=== PATIENT | female | born 1975 | race Caucasian/White ===

== ENCOUNTER 2016-07-29 14:00 | Emergency (ER) | payer MEDICAID ==
--- NOTE | 2016-07-29 15:01 | EDM.PDOC ---
ED HPI GENERAL MEDICAL PROBLEM - General Chief Complaint: General Stated Complaint: WITHDRAWAL FROM MEDS Time Seen by Provider: 07/29/16 14:45 Source of Information: Reports: Patient History Limitations: Reports: No limitations - History of Present Illness INITIAL COMMENTS - FREE TEXT/NARRATIVE: This 40 yo female patient reports to the ED with withdrawal symptoms. The patient reports she stopped taking Oxycodone yesterday due to previous addiction problems and being on the medication for about 1 year. The patient reports she noticed that her muscles seem to be very tight today and she has been nauseated. The patient reports she does have Zofran which is controlling her vomiting, but would like something to help with the other symptoms. The patient reports she has used Ativan in the past with symptom relief. Duration: Day(s): (2), Constant Location: Reports: generalized Quality: Reports: Ache, Dull Severity: moderate Improves with: Reports: Eating Worsens with: Reports: None Context: Reports: Other Bilateral Feet Pain Score (Numeric/FACES): 4 - Related Data Allergies Allergy/AdvReac Type Severity Reaction Status Date / Time carisoprodol [From Soma] Allergy Cannot Verified 03/25/16 07:22 Remember diclofenac Allergy Rash Verified 03/25/16 07:22 escitalopram [From Lexapro] Allergy Rash Verified 03/25/16 07:22 guaifenesin [From Robitussin] Allergy Hives Verified 03/25/16 07:22 nabumetone [From Relafen] Allergy Cannot Verified 03/25/16 07:22 Remember Penicillins Allergy Hives Verified 03/25/16 07:22 prochlorperazine edisylate Allergy Other Verified 03/25/16 07:22 [From Compazine] prochlorperazine maleate Allergy Other Verified 03/25/16 07:22 [From Compazine] rofecoxib [From Vioxx] Allergy Cannot Verified 03/25/16 07:22 Remember tramadol [From Ultram] Allergy Rash Verified 03/25/16 07:22 vancomycin Allergy Redness Verified 03/25/16 07:22 Home Meds: Home Meds Multivitamin [Multivitamins] 1 each PO DAILY 09/25/13 [History] Albuterol [Ventolin HFA] 2 puff IH Q4H PRN 04/21/14 [History] atorvaSTATin [Lipitor] 20 mg PO BEDTIME 04/07/15 [History] Cyanocobalamin (Vitamin B-12) [Vitamin B-12] 1,000 mcg IM ASDIRECTED 09/09/15 [ History] LORazepam 1 tab PO BID PRN 09/09/15 [History] Polyethylene Glycol 3350 [MiraLAX] 17 gm PO DAILY 10/08/15 [History] ALPRAZolam [Xanax] 1 tab PO ASDIRECTED PRN 03/22/16 [History] B12/Levomefolate Calcium/B-6 [Foltx Tablet] 2 mg PO DAILY 03/22/16 [History] Levothyroxine Sodium [Synthroid] 1 tab PO DAILY 03/22/16 [History] Levothyroxine Sodium [Synthroid] 1 tab PO DAILY 03/22/16 [History] Levothyroxine [Synthroid] 1 tab PO DAILY 03/22/16 [History] Ondansetron HCl [Zofran] 1 tab PO Q8H 03/22/16 [History] PARoxetine HCl [Paxil] 1 tab PO BEDTIME 03/22/16 [History] oxyCODONE 1 tab PO Q8H 03/22/16 [History] Past Medical History HEENT History: Reports: Sinusitis, Other (see below) Other HEENT History: TMJ pain Cardiovascular History: Reports: High cholesterol, Other (see below) Other Cardiovascular History: Mitral valve prolapse Respiratory History: Reports: Asthma Gastrointestinal History: Reports: None Genitourinary History: Reports: None 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: 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, Musculoskeletal History: Reports: Osteoporosis Neurological History: Reports: Other (see below) Other Neuro History: insomnia Psychiatric History: Reports: Anxiety, Other (see below) Other Psychiatric History: Hx substance abuse Endocrine/Metabolic History: Reports: Hypothyroidism Hematologic History: Reports: B12 deficiency, Other (see below) Other Hematologic History: hashimotos Immunologic History: Reports: None Oncologic (Cancer) History: Reports: None Dermatologic History: Reports: Cellulitis, Eczema - Infectious Disease History Infectious Disease History: Reports: Chicken pox - Past Surgical History Head Surgeries/Procedures: Reports: None HEENT Surgical History: Reports: Adenoidectomy, Naso-sinus surgery, Tonsillectomy, Other (see below) Other HEENT Surgeries/Procedures: septoplasty, bilateral turbinoplasty GI Surgical History: Reports: Appendectomy, Cholecystectomy, Colonoscopy, EGD, Hernia repair/other, Lysis of adhesions Other GI Surgeries/Procedures: umbilical hernia as child Female Surgical History: Reports: Hysterectomy, Salpingo-oophorectomy Endocrine Surgical History: Reports: Thyroidectomy Musculoskeletal Surgical History: Reports: Other (see below) Other Musculoskeletal Surgeries/Procedures:: "shortening" of left ulna bone, L) wrist arthroscopy, L) wrsit ganglion cyst removal Social & Family History - Family History Family Medical History: Noncontributory HEENT: Reports: None Cardiac: Reports: Arrhythmia Respiratory: Reports: None GI: Reports: Cirrhosis : Reports: None OBGYN: Reports: None Musculoskeletal: Reports: None Neurological: Reports: None Psychiatric: Reports: Autism Endocrine/Metabolic: Reports: Diabetes, type II, Other (see below) Other Endocrine/Metabolic Family History: some kind of thyroid disease in aunt Hematologic: Reports: B12 deficiency Immunologic: Reports: None Dermatologic: Reports: None Oncologic: Reports: Breast, Colon - Tobacco Use Smoking Status *Q: Current Every Day Smoker Years of Tobacco use: 20 Packs/Tins Daily: 0.7 Used Tobacco, but Quit: Yes Month Tobacco Last Used: 1 Second Hand Smoke Exposure: No - Caffeine Use Caffeine Use: Reports: Soda Other Caffeine Use: 1-2 cans - Alcohol Use Days Per Week of Alcohol Use: 0 - Recreational Drug Use Recreational Drug Use: No ED ROS GENERAL - Review of Systems Review Of Systems: ROS reveals no pertinent complaints other than HPI. ED EXAM, GENERAL - Physical Exam Exam: See Below Exam Limited By: No limitations General Appearance: alert, WD/WN, moderate distress Eye Exam: bilateral eye: EOMI, normal inspection, PERRL Ears: normal external exam, normal canal, hearing grossly normal, normal TMs Nose: normal inspection, normal mucosa, no blood Throat/Mouth: Normal inspection, Normal lips, Normal teeth, Normal gums, Normal oropharynx, Normal voice, No airway compromise Head: atraumatic, normocephalic Neck: normal inspection, supple, non-tender, full range of motion Respiratory/Chest: no respiratory distress, lungs clear, normal breath sounds, no accessory muscle use, chest non-tender Cardiovascular: normal peripheral pulses, regular rate, rhythm, no edema, no gallop, no JVD, no murmur, no rub GI/Abdominal: normal bowel sounds, soft, non tender, no organomegaly, no distention, no abnormal bruit, no mass (Female) Exam: Deferred Rectal (Female) Exam: Deferred Back Exam: normal inspection, full range of motion, NT Extremities: normal inspection, normal range of motion, non-tender, normal capillary refill, no pedal edema Neurological: alert, oriented, CN II-XII intact, normal cognition, normal gait, normal reflexes, no motor/sensory deficits Psychiatric: anxious Skin Exam: Warm, Dry, Intact, Normal color, No rash Lymphatic: no adenopathy Course - Vital Signs Last Recorded V/S: Last Vital Signs Temp 36.0 C 07/29/16 14:15 Pulse 94 07/29/16 14:15 Resp 18 07/29/16 14:15 BP 118/87 07/29/16 14:15 Pulse Ox 100 07/29/16 14:15 Departure - Departure Time of Disposition: 14:57 Disposition: Home, Self-Care 01 Condition: fair Clinical Impression: Opioid withdrawal Instructions: Opioid Withdrawal Forms: ED Department Discharge Care Plan Goals: The patient was advised of the examination results during the visit. The patient was given a script for Clonidine (0.1 mg) #30 to take 1 by mouth 3 times per day. The patient should follow-up with Dr. Anderson for continued evaluation and further management of withdrawal symptoms. If the patient has any additional symptoms or concerns, the patient should either visit her primary care facility or return to the emergency department.
== END 2016-07-29 15:46 | disposition home or self-care (01) ==
LOC: DL.ED 14:00
CPT/HCPCS: 99284

== ENCOUNTER 2017-02-04 02:41 | Emergency (ER) | payer MEDICAID ==
[2017-02-04] MEDS ORDERED: cloNIDine 0.1 MG Tab PO ONE (03:19)
[2017-02-04 03:25] VITALS: BP 111/83
--- NOTE | 2017-02-04 03:29 | EDM.PDOC ---
ED HPI GENERAL MEDICAL PROBLEM - General Chief Complaint: Behavioral/Psych Stated Complaint: WITHDRAWL FROM MEDICATION Time Seen by Provider: 02/04/17 03:20 Source of Information: Reports: Patient History Limitations: Reports: No Limitations - History of Present Illness INITIAL COMMENTS - FREE TEXT/NARRATIVE: This 41 yo female patient reports to the ED due to withdrawal symptoms. The patient reports she stopped taking Oxycodone about 48 hours ago. The patient has been taking pain medications for plantar fasciitis and bone spurs. The patient reports she is supposed to be scheduling surgery today for her foot. The patient reports similar symptoms in the past that was helped with Clonidine. Onset: Gradual Duration: Day(s):, Constant, Getting Worse Location: Reports: Generalized Severity: Moderate Improves with: Reports: None Worsens with: Reports: None Associated Symptoms: Reports: No Other Symptoms Bilateral Feet Pain Score (Numeric/FACES): 4 - Related Data Allergies Allergy/AdvReac Type Severity Reaction Status Date / Time carisoprodol [From Soma] Allergy Cannot Verified 02/04/17 02:47 Remember diclofenac Allergy Rash Verified 02/04/17 02:47 escitalopram [From Lexapro] Allergy Rash Verified 02/04/17 02:47 guaifenesin [From Robitussin] Allergy Hives Verified 02/04/17 02:47 nabumetone [From Relafen] Allergy Cannot Verified 02/04/17 02:47 Remember Penicillins Allergy Hives Verified 02/04/17 02:47 prochlorperazine edisylate Allergy Other Verified 02/04/17 02:47 [From Compazine] prochlorperazine maleate Allergy Other Verified 02/04/17 02:47 [From Compazine] rofecoxib [From Vioxx] Allergy Cannot Verified 02/04/17 02:47 Remember tramadol [From Ultram] Allergy Rash Verified 02/04/17 02:47 vancomycin Allergy Redness Verified 02/04/17 02:47 Home Meds: Home Meds Multivitamin [Multivitamins] 1 each PO DAILY 09/25/13 [History] Albuterol [Ventolin HFA] 2 puff IH Q4H PRN 04/21/14 [History] atorvaSTATin [Lipitor] 20 mg PO BEDTIME 04/07/15 [History] Cyanocobalamin (Vitamin B-12) [Vitamin B-12] 1,000 mcg IM ASDIRECTED 09/09/15 [ History] LORazepam 1 tab PO BID PRN 09/09/15 [History] Levothyroxine Sodium [Synthroid] 1 tab PO DAILY 03/22/16 [History] Levothyroxine Sodium [Synthroid] 2 tab PO DAILY 03/22/16 [History] Levothyroxine [Synthroid] 1 tab PO DAILY 03/22/16 [History] Ondansetron HCl [Zofran] 1 tab PO Q8H 03/22/16 [History] oxyCODONE 1 tab PO Q8H 03/22/16 [History] Past Medical History HEENT History: Reports: Sinusitis Other HEENT History: TMJ pain Cardiovascular History: Reports: High Cholesterol Other Cardiovascular History: Mitral valve prolapse Respiratory History: Reports: Asthma Gastrointestinal History: Reports: None Genitourinary History: Reports: None [employer] INS[employer]OR History: Reports: Musculoskeletal History: Reports: Osteoporosis Other Musculoskeletal History: plantar fasceitis Neurological History: Reports: Other (See Below) Other Neuro History: insomnia Psychiatric History: Reports: Addiction, Anxiety Other Psychiatric History: Hx substance abuse Endocrine/Metabolic History: Reports: Hypothyroidism Hematologic History: Reports: B12 Deficiency, Other (See Below) Other Hematologic History: hashimotos Immunologic History: Reports: None Oncologic (Cancer) History: Reports: None Dermatologic History: Reports: Cellulitis, Eczema - Infectious Disease History Infectious Disease History: Reports: Chicken Pox - Past Surgical History Head Surgeries/Procedures: Reports: None HEENT Surgical History: Reports: Adenoidectomy, Naso-Sinus Surgery, Tonsillectomy GI Surgical History: Reports: Appendectomy, Cholecystectomy, Colonoscopy, EGD, Hernia Repair/Other, Lysis of Adhesions Female Surgical History: Reports: Hysterectomy, Salpingo-Oophorectomy Endocrine Surgical History: Reports: Thyroidectomy Social & Family History - Family History Family Medical History: Noncontributory HEENT: Reports: None Cardiac: Reports: Arrhythmia Respiratory: Reports: None GI: Reports: Cirrhosis : Reports: None OBGYN: Reports: None Musculoskeletal: Reports: None Neurological: Reports: None Psychiatric: Reports: Autism Endocrine/Metabolic: Reports: Diabetes, type II, Other (See Below) Other Endocrine/Metabolic Family History: some kind of thyroid disease in aunt Hematologic: Reports: B12 Deficiency Immunologic: Reports: None Dermatologic: Reports: None Oncologic: Reports: Breast, Colon - Tobacco Use Smoking Status *Q: Current Every Day Smoker Years of Tobacco use: 23 Packs/Tins Daily: 1 Used Tobacco, but Quit: Yes Month Tobacco Last Used: 1 Second Hand Smoke Exposure: Yes - Caffeine Use Caffeine Use: Reports: Soda Other Caffeine Use: 1-2 cans - Alcohol Use Days Per Week of Alcohol Use: 0 - Recreational Drug Use Recreational Drug Use: No ED ROS GENERAL - Review of Systems Review Of Systems: ROS reveals no pertinent complaints other than HPI. ED EXAM, GENERAL - Physical Exam Exam: See Below Exam Limited By: No Limitations General Appearance: Alert, WD/WN, No Apparent Distress Eye Exam: Bilateral Eye: EOMI, Normal Inspection, PERRL Ears: Normal External Exam, Normal Canal, Hearing Grossly Normal, Normal TMs Nose: Normal Inspection, Normal Mucosa, No Blood Throat/Mouth: Normal Inspection, Normal Lips, Normal Teeth, Normal Gums, Normal Oropharynx, Normal Voice, No Airway Compromise Head: Atraumatic, Normocephalic Neck: Normal Inspection, Supple, Non-Tender, Full Range of Motion Respiratory/Chest: No Respiratory Distress, Lungs Clear, Normal Breath Sounds, No Accessory Muscle Use, Chest Non-Tender Cardiovascular: Normal Peripheral Pulses, Regular Rate, Rhythm, No Edema, No Gallop, No JVD, No Murmur, No Rub GI/Abdominal: Normal Bowel Sounds, Soft, Non-Tender, No Organomegaly, No Distention, No Abnormal Bruit, No Mass (Female) Exam: Deferred Rectal (Female) Exam: Deferred Back Exam: Normal Inspection, Full Range of Motion, NT Extremities: Normal Inspection, Normal Range of Motion, No Pedal Edema, Normal Capillary Refill, Other (bilateral foot pain (worse in right)) Neurological: Alert, Oriented, CN II-XII Intact, Normal Cognition, Normal Gait, Normal Reflexes, No Motor/Sensory Deficits Psychiatric: Anxious, Flat Affect Skin Exam: Warm, Dry, Intact, Normal Color, No Rash Lymphatic: No Adenopathy Course - Vital Signs Last Recorded V/S: Last Vital Signs Temp 36.1 C 02/04/17 02:43 Pulse 128 H 02/04/17 02:43 Resp 18 02/04/17 02:43 BP 111/83 02/04/17 03:23 Pulse Ox 95 09/22/17 02:43 - Orders/Labs/Meds Labs: Laboratory Tests 02/04/17 Range/Units 02:55 Urine Opiates Screen Negative (NEGATIVE) Ur Oxycodone Screen Positive H (NEGATIVE) Urine Methadone Screen Negative (NEGATIVE) Ur Barbiturates Screen Negative (NEGATIVE) U Tricyclic Antidepress Negative (NEGATIVE) Ur Phencyclidine Scrn Negative (NEGATIVE) Ur Amphetamine Screen Negative (NEGATIVE) U Methamphetamines Scrn Negative (NEGATIVE) Urine MDMA Screen Negative (NEGATIVE) U Benzodiazepines Scrn Positive H (NEGATIVE) Urine Cocaine Screen Negative (NEGATIVE) U Marijuana (THC) Screen Negative (NEGATIVE) Meds: Medications Discontinued Medications Generic Name Dose Route Start Last Admin Trade Name Freq PRN Reason Stop Dose Admin Clonidine HCl 0.1 mg 02/04/17 03:19 02/04/17 03:23 Catapres PO 02/04/17 03:20 0.1 mg ONETIME ONE Administration Departure - Departure Time of Disposition: 03:26 Disposition: Home, Self-Care 01 Condition: Fair Clinical Impression: Opioid withdrawal - Discharge Information Instructions: Opioid Withdrawal Forms: ED Department Discharge Care Plan Goals: The patient was advised of the examination and lab results during the visit. The patient was given an oral dose of Clonidine (0.1 mg). The patient was discharged with a script for Clonidine (0.1 mg) #10 to take 1 by mouth 2 times per day. The patient was encouraged to follow-up with her primary care facility for continued evaluation and further management. If the patient has any additional symptoms or concerns, the patient should visit her primary care facility or return to the emergency department.
== END 2017-02-04 03:33 | disposition home or self-care (01) ==
LOC: DL.ED 02:41
DX: F11.23 Opioid dependence with withdrawal (principal); E78.00 Pure hypercholesterolemia, unspecified; E03.9 Hypothyroidism, unspecified; J45.909 Unspecified asthma, uncomplicated; F17.210 Nicotine dependence, cigarettes, uncomplicated; Z88.8 Allergy status to other drugs, medicaments and biological substances; Z88.0 Allergy status to penicillin; Z79.899 Other long term (current) drug therapy
CPT/HCPCS: 80305; 99284; A9270

== ENCOUNTER 2017-02-24 09:02 | Day surgery (SDC) | payer MEDICAID ==
[~2017-02-24 09:02] MED LIST: Lactated Ringers 1,000 ML IV SCH; Sodium Chloride 0.9% 10 ML Syringe FLUSH PRN
[2017-02-24] MEDS ORDERED: Ketorolac 30 MG/ML SDV IVPUSH ONE (09:03)
[2017-02-24] MEDS ORDERED: fentaNYL 100 MCG/2 ML SDV IV ONE (09:03)
[2017-02-24] MEDS ORDERED: Propofol 200 MG/20 ML SDV IV ONE (09:03)
[2017-02-24] MEDS ORDERED: Lidocaine 1% 30 ML SDV INJECT ONE ×4 (09:03→13:58)
[2017-02-24] MEDS ORDERED: Betamethasone Acetate/Betamethasone Sod Phosphate 30 MG/5 ML MDV ONE ×4 (09:03→13:59)
[2017-02-24] MEDS ORDERED: Ondansetron 4 MG/2 ML SDV IV ONE (09:03)
[2017-02-24] MEDS ORDERED: Dexamethasone 4 MG/ML SDV IV ONE (09:03)
[2017-02-24] MEDS ORDERED: Midazolam 1 MG/ML 2 ML SDV IV ONE (09:03)
[2017-02-24] MEDS ORDERED: Bupivacaine 0.5% 10 ML SDV INJECT ONE ×4 (09:03→13:58)
[2017-02-24] MEDS ORDERED: Bupivacaine 0.5% 10 ML SDV ONE (10:36)
[2017-02-24] MEDS ORDERED: Lidocaine 1% 30 ML SDV ONE (10:36)
[2017-02-24] MEDS ORDERED: fentaNYL 100 MCG/2 ML SDV ONE (12:48)
[2017-02-24] MEDS ORDERED: Ketorolac 30 MG/ML SDV ONE (12:48)
[2017-02-24] MEDS ORDERED: Midazolam 1 MG/ML 2 ML SDV ONE (12:48)
[2017-02-24] MEDS ORDERED: Dexamethasone 4 MG/ML SDV ONE (12:48)
[2017-02-24] MEDS ORDERED: Ondansetron 4 MG/2 ML SDV ONE (12:48)
[2017-02-24] MEDS ORDERED: Acetaminophen/oxyCODONE 325-5 MG Tab PO PRN (13:55)
--- NOTE | 2017-02-24 14:03 | PCM.OPNOTE ---
- General Post-Op/Procedure Note Date of Surgery/Procedure: 02/24/17 Operative Procedure(s): right foot open plantar fasciectomy Pre Op Diagnosis: right foot plantar fasciitis Post-Op Diagnosis: gio Anesthesia Technique: Local, MAC Primary Surgeon: Ericka Tariq Anesthesia Provider: Cabrera Carcamo EBL in mLs: 5 Complications: none Condition: Good Free Text/Narrative:: Pt tolerated procedure well and was transported to recovery with vascular status intact to right foot. Well padded L&U splint with ankle in 0 applied.
[2017-02-24 15:06] VITALS: BP 119/79
--- NOTE | 2017-02-24 21:38 | OR ---
DATE: 02/24/2017 PREOPERATIVE DIAGNOSIS: Right foot plantar fasciitis. POSTOPERATIVE DIAGNOSIS: Right foot plantar fasciitis. PROCEDURE PERFORMED: Right foot open plantar fasciectomy. ANESTHESIA: Local MAC with preoperative local block of 10 mL; 1:1 mixture of 1% lidocaine plain and 0.5% Marcaine plain. TOURNIQUET TIME: 24 minutes; pneumatic ankle tourniquet. ESTIMATED BLOOD LOSS: Minimal. SPECIMEN: None. COMPLICATIONS: None. INDICATIONS: Jennifer is a 41-year-old female who presents with right foot heel pain. I have been seeing her for few years now for this heel pain. We have tried multiple different treatment options for this including custom orthotics, injections, stretchings, and activity modifications with no relief. She does stand on her feet all day at work on hard floors, and this increases the pain. Also, increased pain with first steps after rest. X-rays of the right foot reveal no signs of fracture present, no spurring present. The patient voiced good understanding of the proposed procedure and possible complications and elects to have surgery at this time. DESCRIPTION OF PROCEDURE: The patient was taken to the operating room lying in the supine position. After adequate anesthesia induction as described above, the right foot was prepped and draped in the usual sterile fashion. A pneumatic ankle tourniquet was inflated to 225 mmHg. Attention was then directed to the plantar right foot at the area just distal to the calcaneal fat pad. At the instep, a 4 cm transverse incision was made in this area to gain access to the plantar fascia band. Sharp and blunt dissection was performed down to the level of the plantar fascia band. An approximately 1 cm square section was removed from the plantar fascia band at the medial and central portion and was excised from the foot. The area was inspected, and no further tightness of the plantar fascia band was noted in this area. The area was then irrigated with copious amounts of sterile saline. Deep closure was completed with 2-0 Vicryl, and skin closure was completed with 4-0 nylon. I did inject betamethasone into this area after the closure. The area was then dressed with Xeroform to the incision site, fluffs, Webril, and a well-padded L and U splint with the ankle in 0 degrees. The patient tolerated the procedure and anesthesia well and was transported to the recovery with vital signs stable. Vascular status intact to the right foot as noted by immediate hyperemia to all digits upon deflation of the ankle tourniquet. The patient was then discharged home when she met hospital discharge requirements. [facility] /[id number]
--- NOTE | 2017-02-28 07:42 | EKG ---
02/24/2017- DARBY SANTANA - EKG done on a 41-year-old female, showing sinus rhythm with normal axis, normal intervals, no acute ST-T wave changes. [facility] /[id number]
== END 2017-02-24 14:55 | disposition home or self-care (01) ==
LOC: DL.SDS 09:02
PROVIDERS: ATTEND Podiatrist
DX: M72.2 Plantar fascial fibromatosis (principal); E53.8 Deficiency of other specified B group vitamins; Z90.710 Acquired absence of both cervix and uterus; Z90.49 Acquired absence of other specified parts of digestive tract; Z98.890 Other specified postprocedural states; Z98.51 Tubal ligation status; Z79.899 Other long term (current) drug therapy; Z88.0 Allergy status to penicillin; Z88.1 Allergy status to other antibiotic agents; Z88.8 Allergy status to other drugs, medicaments and biological substances; F17.210 Nicotine dependence, cigarettes, uncomplicated
CPT/HCPCS: 28060; 93005; J0702; J1100; J1885; J2250; J2405; J2704; J3010; J7120

== ENCOUNTER 2017-07-07 07:05 | Day surgery (SDC) | payer MEDICAID ==
[~2017-07-07 07:05] MED LIST changes: +Clindamycin Phosphate 600 MG in Sodium Chloride 0.9% 100 ML IV ONE
[2017-07-07] MEDS ORDERED: Bupivacaine 0.5% 10 ML SDV ONE (07:29)
[2017-07-07] MEDS ORDERED: Lidocaine 1% 30 ML SDV ONE (07:29)
[2017-07-07 07:36] VITALS: BP 119/90
[2017-07-07 08:03] LABS: CHLORIDE,CL 102 mmol/L (101-111); SODIUM,NA 134 mmol/L (135-145)
== END 2017-07-07 08:30 | disposition home or self-care (01) ==
LOC: DL.SDS 07:05
PROVIDERS: ATTEND Podiatrist
DX: M79.671 Pain in right foot (principal); M79.672 Pain in left foot; E03.9 Hypothyroidism, unspecified; E53.8 Deficiency of other specified B group vitamins; Z53.8 Procedure and treatment not carried out for other reasons; Z88.0 Allergy status to penicillin; Z88.8 Allergy status to other drugs, medicaments and biological substances; F17.210 Nicotine dependence, cigarettes, uncomplicated; Z79.899 Other long term (current) drug therapy; Z90.49 Acquired absence of other specified parts of digestive tract; Z98.890 Other specified postprocedural states
CPT/HCPCS: 36415; 80048; 84443

== ENCOUNTER 2017-07-14 05:55 | Day surgery (SDC) | payer MEDICAID ==
[~2017-07-14 05:55] MED LIST changes: -Clindamycin Phosphate 600 MG in Sodium Chloride 0.9% 100 ML IV ONE; -Lactated Ringers 1,000 ML IV SCH
[2017-07-14] MEDS ORDERED: Propofol 200 MG/20 ML SDV IV ONE (05:56)
[2017-07-14] MEDS ORDERED: Midazolam 1 MG/ML 2 ML SDV IV ONE (05:56)
[2017-07-14] MEDS ORDERED: fentaNYL 100 MCG/2 ML SDV IV ONE (05:56)
[2017-07-14] MEDS ORDERED: Ondansetron 4 MG/2 ML SDV IV ONE (05:56)
[2017-07-14] MEDS ORDERED: Ketorolac 30 MG/ML SDV IVPUSH ONE (05:56)
[2017-07-14] MEDS ORDERED: Dexamethasone 4 MG/ML SDV IV ONE (05:56)
[2017-07-14] MEDS ORDERED: Lidocaine 1% 30 ML SDV ONE (06:32)
[2017-07-14] MEDS ORDERED: Bupivacaine 0.5% 10 ML SDV ONE (06:32)
[2017-07-14] MEDS: Lactated Ringers 1,000 ML IV SCH (06:35)
[2017-07-14] MEDS ORDERED: Midazolam 1 MG/ML 2 ML SDV ONE (07:07)
[2017-07-14] MEDS ORDERED: fentaNYL 100 MCG/2 ML SDV ONE (07:08)
[2017-07-14] MEDS ORDERED: Propofol 200 MG/20 ML SDV ONE ×2 (07:08→08:24)
[2017-07-14] MEDS ORDERED: Clindamycin Phosphate 600 MG/4 ML SDV ONE ×2 (07:14→07:22)
[2017-07-14] MEDS ORDERED: Sodium Chloride 0.9% 0 ML ONE (07:14)
[2017-07-14] MEDS: Clindamycin Phosphate 600 MG in Sodium Chloride 0.9% 100 ML IV ONE (07:25)
[2017-07-14] MEDS: Bupivacaine 0.5% 10 ML SDV INJECT ONE ×2 (07:38→08:04)
[2017-07-14] MEDS: Lidocaine 1% 30 ML SDV INJECT ONE ×2 (07:38→08:04)
[2017-07-14 09:46] VITALS: BP 125/88
--- NOTE | 2017-07-14 10:02 | PCM.OPNOTE ---
- General Post-Op/Procedure Note Date of Surgery/Procedure: 07/14/17 Operative Procedure(s): left foot open plantar fascia release/scar tissue excision Pre Op Diagnosis: left foot plantar fasciitis, painful scar tissue Post-Op Diagnosis: gio Anesthesia Technique: Local, MAC Primary Surgeon: Ericka Tariq Anesthesia Provider: Cabrera Carcamo EBL in mLs: 10 Complications: none Condition: Good Free Text/Narrative:: Intake & Output 07/13/17 07/14/17 07/14/17 22:59 06:59 14:59 Intake Total 250 Balance 250 Pt tolerated procedure well and was transported to recovery with vascular status intact to left foot. TT 19 mins. Placed in well padded compression dressing with cam boot in 90 degrees.
--- NOTE | 2017-07-15 08:27 | OR ---
DATE: 07/14/2017 PREOPERATIVE DIAGNOSIS: Recurrent left foot plantar fasciitis with scar tissue. POSTOPERATIVE DIAGNOSIS: Recurrent left foot plantar fasciitis with scar tissue. PROCEDURE PERFORMED: Left foot open plantar fasciectomy with scar tissue excision. ANESTHESIA: Local MAC with preoperative local block of 10 mL 1:1 mixture of 1% lidocaine plain and 0.5% Marcaine plain. TOURNIQUET TIME: 19 minutes. Pneumatic ankle tourniquets. ESTIMATED BLOOD LOSS: Minimal. SPECIMEN: None. COMPLICATIONS: None. INDICATIONS: Jennifer is a 41-year-old female, who presents with left heel pain. We had done a surgery in the past for her chronic plantar fasciitis. She states that it was better for quite a while after the surgery and then started becoming painful again. She has been dealing with some scar tissue to that area ever since the surgery and has been trying some scar tissue massage as well as stretching, icing, custom inserts, and also we did a cortisone injection, which only helped for a few days. She would like to get back to work as she has not been working in the past several months and is planning on going back in a couple of months. She stands on her feet all day for work and would like to get this taken care of before she returns to work. Her right foot was recently done surgically and she has not been having any problems with that right foot, which she states is now healed. The patient voiced good understanding of the proposed procedure and possible complications and elects to have surgery at this time. DESCRIPTION OF THE PROCEDURE: The patient was taken to the operating room lying in the supine position. After adequate anesthesia induction as described above, the left foot was prepped and draped in the usual sterile fashion. A pneumatic ankle tourniquet was inflated to 225 mmHg. Attention was then directed to the left foot at the area just distal to the calcaneus fat pad where an approximately 4 cm linear incision was made to gain access to the plantar aspect of the foot and the central band of the plantar fascia. Sharp and blunt dissection were performed down to the level of the plantar fascia area, there was noted to be quite a thick amount of fibrous type tissue in the area and this was all excised with a #15 blade. The plantar fascia was scarred in as well and this was also excised, an approximately 1.5 cm section of this plantar fascia band was resected from the foot. Inspection of the site revealed no further tightness of the plantar fascia or scar tissue. All scar tissue seemed to be removed. The area was then irrigated with copious amounts of sterile saline. Deep closure was completed with 3-0 Vicryl, and skin closure was completed with 4-0 nylon. The area was dressed with Xeroform to the incision site, fluffs, Webril, and an Conor wrap. She was placed into a Cam boot at this time due to her having some issues with the splint last time. She will make sure she keeps this on at all time and can take it off to stretch her foot a few times a day. She tolerated the procedure and anesthesia well and left the operating room for recovery with vital signs stable and in good condition with vascular status intact to the left foot as noted by immediate hyperemia upon deflation of the tourniquet. Total tourniquet time of 19 minutes. She was discharged home when she met hospital discharge requirements. [facility] /[id number]
== END 2017-07-14 09:05 | disposition home or self-care (01) ==
LOC: DL.SDS 05:55
PROVIDERS: ATTEND Podiatrist
DX: M72.2 Plantar fascial fibromatosis (principal); E03.9 Hypothyroidism, unspecified; F41.9 Anxiety disorder, unspecified; F17.210 Nicotine dependence, cigarettes, uncomplicated; Z79.899 Other long term (current) drug therapy; Z88.0 Allergy status to penicillin; Z88.1 Allergy status to other antibiotic agents; Z88.8 Allergy status to other drugs, medicaments and biological substances
CPT/HCPCS: 28060; J1100; J1885; J2250; J2405; J2704; J3010; J7050; J7120; S0077

== ENCOUNTER 2017-08-08 | Emergency (ER) | payer MEDICAID ==
[2017-08-08 00:16] VITALS: BP 133/87
[2017-08-08] MEDS ORDERED: LORazepam 2 MG/ML Syringe IM ONE (00:20)
--- NOTE | 2017-08-08 00:24 | EDM.PDOCBH ---
ED HPI GENERAL MEDICAL PROBLEM - General Chief Complaint: Behavioral/Psych Stated Complaint: ANXIETY ATTACK [id number] Time Seen by Provider: 08/08/17 00:20 Source of Information: Reports: Patient History Limitations: Reports: No Limitations - History of Present Illness INITIAL COMMENTS - FREE TEXT/NARRATIVE: c/o exac anxiety since foot surgery few days ago, vistaril not helping. feeling agitated and can't sleep. - Related Data Allergies Allergy/AdvReac Type Severity Reaction Status Date / Time carisoprodol [From Soma] Allergy Cannot Verified 07/14/17 06:21 Remember diclofenac Allergy Rash Verified 07/14/17 06:21 escitalopram [From Lexapro] Allergy Rash Verified 07/14/17 06:21 guaifenesin [From Robitussin] Allergy Hives Verified 07/14/17 06:21 nabumetone [From Relafen] Allergy Cannot Verified 07/14/17 06:21 Remember Penicillins Allergy Hives Verified 07/14/17 06:21 prochlorperazine edisylate Allergy Other Verified 07/14/17 06:21 [From Compazine] prochlorperazine maleate Allergy Other Verified 07/14/17 06:21 [From Compazine] rofecoxib [From Vioxx] Allergy Cannot Verified 07/14/17 06:21 Remember tramadol [From Ultram] Allergy Rash Verified 07/14/17 06:21 vancomycin Allergy Redness Verified 07/14/17 06:21 Home Meds: Home Meds Multivitamin [Multivitamins] 1 each PO DAILY 09/25/13 [History] Albuterol [Ventolin HFA] 2 puff IH Q4H PRN 04/21/14 [History] atorvaSTATin [Lipitor] 20 mg PO BEDTIME 04/07/15 [History] Cyanocobalamin (Vitamin B-12) [Vitamin B-12] 1,000 mcg IM ASDIRECTED 09/09/15 [ History] Ondansetron HCl [Zofran] 1 tab PO Q8H PRN 03/22/16 [History] Acyclovir [IJP: Acyclovir] 500 mg PO DAILY 02/23/17 [History] Levothyroxine Sodium [Synthroid] 250 mcg PO DAILY 02/23/17 [History] Naproxen [Naproxen] 500 mg PO BID PRN 02/23/17 [History] Venlafaxine HCl [Venlafaxine ER] 1 cap PO DAILY 02/23/17 [History] Gabapentin [Neurontin] 300 mg PO TID 07/05/17 [History] Hydrocodone/Acetaminophen [Hydrocodon-Acetaminophen 5-325] 5 - 325 mg PO Q8H [History] LORazepam 1 mg PO Q8HR 07/05/17 [History] Pantoprazole Sodium [Protonix] 40 mg PO ASDIRECTED PRN 07/05/17 [History] Potassium Chloride [Klor-Con 10] 10 meq PO ATDISCHARGE PRN 07/05/17 [History] Past Medical History HEENT History: Reports: Sinusitis Other HEENT History: TMJ pain Cardiovascular History: Reports: High Cholesterol, Other (See Below) Other Cardiovascular History: Mitral valve prolapse Respiratory History: Reports: Asthma, Bronchitis, Recurrent Gastrointestinal History: Reports: None, Other (See Below) Other Gastrointestinal History: IDIOPATHIC COLITIS Genitourinary History: Reports: None STEREOPTICIAN History: Reports: , Spontaneous Musculoskeletal History: Reports: Osteoporosis Other Musculoskeletal History: plantar fasceitis Neurological History: Reports: Other (See Below) Other Neuro History: INSOMNIA Psychiatric History: Reports: Addiction, Anxiety Other Psychiatric History: Hx substance abuse Endocrine/Metabolic History: Reports: Hypothyroidism, Other (See Below) Other Endocrine/Metabolic History: HX OF CECILIA'S THYROIDITIS Hematologic History: Reports: B12 Deficiency, Other (See Below) Other Hematologic History: hashimotos Immunologic History: Reports: None Oncologic (Cancer) History: Reports: None Dermatologic History: Reports: Cellulitis, Eczema - Infectious Disease History Infectious Disease History: Reports: Chicken Pox - Past Surgical History Head Surgeries/Procedures: Reports: None HEENT Surgical History: Reports: Adenoidectomy, Naso-Sinus Surgery, Tonsillectomy, Other (See Below) Other HEENT Surgeries/Procedures: septoplasty, bilateral turbinoplasty Cardiovascular Surgical History: Reports: None Respiratory Surgical History: Reports: None GI Surgical History: Reports: Appendectomy, Cholecystectomy, Colonoscopy, EGD, Esophageal Dilatation, Hernia Repair/Other, Lysis of Adhesions, Other (See Below ) Other GI Surgeries/Procedures: umbilical hernia as child. ABDOMINAL ADHESION SURGERY Female Surgical History: Reports: Hysterectomy, Salpingo-Oophorectomy Endocrine Surgical History: Reports: Thyroidectomy Musculoskeletal Surgical History: Reports: Other (See Below) Other Musculoskeletal Surgeries/Procedures:: "shortening" of left ulna bone, L) wrist arthroscopy, L) wrsit ganglion cyst removal Social & Family History - Family History Family Medical History: Noncontributory HEENT: Reports: None Cardiac: Reports: Arrhythmia Respiratory: Reports: None GI: Reports: Cirrhosis : Reports: None OBGYN: Reports: None Musculoskeletal: Reports: None Neurological: Reports: None Psychiatric: Reports: Autism Endocrine/Metabolic: Reports: Diabetes, type II, Other (See Below) Other Endocrine/Metabolic Family History: some kind of thyroid disease in aunt Hematologic: Reports: B12 Deficiency Immunologic: Reports: None Dermatologic: Reports: None Oncologic: Reports: Breast, Colon - Tobacco Use Smoking Status *Q: Current Every Day Smoker Years of Tobacco use: 20 Packs/Tins Daily: 1 Used Tobacco, but Quit: No Month/Year Tobacco Last Used: 1 Second Hand Smoke Exposure: Yes - Caffeine Use Caffeine Use: Reports: None Other Caffeine Use: 1-2 cans - Alcohol Use Days Per Week of Alcohol Use: 0 - Recreational Drug Use Recreational Drug Use: No Drug Use in Last 12 Months: No ED ROS GENERAL - Review of Systems Review Of Systems: ROS reveals no pertinent complaints other than HPI. ED EXAM, BEHAVIORAL HEALTH - Physical Exam Exam: See Below Exam Limited By: No Limitations General Appearance: Alert, WD/WN, Anxious, Mild Distress, Other (crying) Eye Exam: Bilateral Eye: PERRL (pupils ER @ 4mm) Ears: Hearing Grossly Normal Throat/Mouth: Normal Voice, No Airway Compromise Head: Atraumatic Neck: Non-Tender, Full Range of Motion Respiratory/Chest: No Respiratory Distress Cardiovascular: Regular Rate, Rhythm GI/Abdominal: Soft, Non-Tender Neurological: Alert, Normal Cognition, Normal Gait, No Motor/Sensory Deficits, Other (distraught) Psychiatric: Tearful, Agitated Skin Exam: Warm, Dry, Normal color COURSE, BEHAVIORAL HEALTH COMP - Course Vital Signs: Last Vital Signs Temp 36.7 C 08/08/17 00:15 Pulse 141 H 08/08/17 00:15 Resp 18 08/08/17 00:15 BP 133/87 08/08/17 00:15 Pulse Ox 100 08/08/17 00:15 Orders, Labs, Meds: Active Orders 24 hr Category Date Time Status LORazepam [Ativan] Med 08/08/17 00:20 Once 2 mg IM ONETIME ONE Departure - Departure Time of Disposition: 00:22 Disposition: Home, Self-Care 01 Condition: Good Clinical Impression: Anxiety Insomnia Qualifiers: Insomnia type: due to medical condition Qualified Code(s): G47.01 - Insomnia due to medical condition - Discharge Information Instructions: Insomnia Additional Instructions: 1) rest 2) follow up with clinic - My Orders Last 24 Hours: My Active Orders 08/08/17 00:20 LORazepam [Ativan] 2 mg IM ONETIME ONE - Assessment/Plan Last 24 Hours: My Active Orders 08/08/17 00:20 LORazepam [Ativan] 2 mg IM ONETIME ONE
[2017-08-08] MEDS ORDERED: LORazepam 1 MG Tab PO ONE (01:02)
== END 2017-08-08 01:10 | disposition home or self-care (01) ==
LOC: DL.ED
DX: F41.9 Anxiety disorder, unspecified (principal); G47.01 Insomnia due to medical condition; E78.00 Pure hypercholesterolemia, unspecified; E03.9 Hypothyroidism, unspecified; J45.909 Unspecified asthma, uncomplicated; F17.210 Nicotine dependence, cigarettes, uncomplicated; Z88.0 Allergy status to penicillin; Z88.1 Allergy status to other antibiotic agents; Z88.8 Allergy status to other drugs, medicaments and biological substances; Z79.899 Other long term (current) drug therapy
CPT/HCPCS: 96372; 99283; A9270-GY; J2060

== ENCOUNTER 2017-09-06 20:19 | Emergency (ER) | payer MEDICAID ==
[2017-09-06 20:44] VITALS: BP 126/97
== END 2017-09-06 22:54 | disposition left against medical advice (07) ==
LOC: DL.ED 20:19
DX: Z53.21 Procedure and treatment not carried out due to patient leaving prior to being seen by health care provider (principal)

== ENCOUNTER 2017-09-07 15:17 | Emergency (ER) | payer MEDICAID | END 2017-09-07 17:47 | disposition left against medical advice (07) | LOC: DL.ED 15:17 | DX: Z53.21 Procedure and treatment not carried out due to patient leaving prior to being seen by health care provider (principal) ==

== ENCOUNTER 2017-09-09 18:50 | Emergency (ER) | payer MEDICAID ==
[2017-09-09 20:38] VITALS: BP 128/76
--- NOTE | 2017-09-10 03:15 | ER ---
SUBJECTIVE: The patient is a 42-year-old female, who comes in because she has been having some anxiety and some periods of double vision over the last week or so. She denies head trauma, seizures, syncope, near syncope, any other HEENT changes. No neck pain or stiffness. No bites, stings, or rashes. No recent travel. No chest pain, shortness of breath. No bowel or bladder changes. Denies . No bleeding. PAST MEDICAL/SURGICAL HISTORY: Significant for: 1. Sinusitis. 2. TMJ pain. 3. Removal of her tonsils. 4. Septoplasty. 5. Bilateral turbinoplasty. 6. Hyperlipidemia. 7. Mitral valve prolapse. 8. Asthma. 9. Recurrent bronchitis. 10.Colitis. 11.She had her appendix removed. 12.She had a cholecystectomy. 13.She has had colonoscopies. 14.EGD. 15.Esophageal dilatation. 16.Hernia repair. 17.She has had abdominal adhesiolysis. 18.She had an umbilical hernia as a child. 19.She had abdominal adhesion surgery. 20.She had a hysterectomy, complete. 21.She has had SABs. 22.Osteoporosis. 23.Plantar fasciitis. 24.Arthroscopy of left wrist. 25.Ganglion cystectomy of the left wrist. 26.Hypothyroidism. 27.Juan's thyroiditis. 28.Thyroidectomy. 29.Insomnia. 30.Cellulitis. 31.Xerosis. 32.Addiction. 33.Anxiety and depression. 34.History of substance abuse. 35.B12 deficiency. CURRENT MEDICATIONS: Include: 1. Synthroid 250 mcg p.o. daily. 2. Effexor 37.5 mg p.o. daily. 3. Effexor 75 mg p.o. daily. ALLERGIES: She states she is allergic to: 1. Soma, does not recall why. 2. Diclofenac causes rash. 3. Lexapro causes rash. 4. Robitussin causes hives. 5. Relafen, she does not recall why. 6. Penicillins cause hives. 7. Compazine. She is not sure why. 8. Vioxx, cannot recall why. 9. Tramadol causes rash. 10.Vancomycin causes redness. SOCIAL HISTORY: She has been smoking cigarettes for about 20 years. She denies alcohol or other drug use at this time. REVIEW OF SYSTEMS: No fevers, chills. No head trauma. No other neurologic changes. No incontinence. Please see HPI. OBJECTIVE: Vital Signs: She is afebrile. Blood pressure is 139/99, respiratory rate 18, oxygen 100% on room air. General: Normocephalic and atraumatic. Warm. Appears somewhat older than her stated age. Her visual acuity test shows; left eye 20/15, and her right eye is 20/25. Normal gait. Talkative. Somewhat anxious. She is A and O x3. GCS of 1 5. HEENT: Not remarkable. Her eye exam is PERRL, EOMI. Funduscopic exam was quite unremarkable, shows good retinal vessels, intact. No bleeding. No signs of trauma. There is no clouding. Neck: Unremarkable. Chest: Clear. No respiratory distress. Heart: Rate is normal. Skin: Clear. Neurologic: Unremarkable. LABORATORY STUDIES: CAT scan of her head is not remarkable. ASSESSMENT: 1. Diplopia. 2. Anxiety. PLAN: Recommend to see her PCP this next week. Get an appointment with an ironer hand to get a thorough eye exam, and she may need an MRI of her brain or brainstem for any reasons of her diplopia. Advised not to operate a vehicle or any equipment, and to stay with her family until this is resolved. [facility] /[id number]
== END 2017-09-09 20:35 | disposition home or self-care (01) ==
LOC: DL.ED 18:50
DX: F41.9 Anxiety disorder, unspecified (principal); H53.2 Diplopia; F32.9 Major depressive disorder, single episode, unspecified; J45.909 Unspecified asthma, uncomplicated; F17.210 Nicotine dependence, cigarettes, uncomplicated; Z88.8 Allergy status to other drugs, medicaments and biological substances; Z88.0 Allergy status to penicillin
CPT/HCPCS: 70450; 99285

== ENCOUNTER 2017-09-09 23:46 | Emergency (ER) | payer MEDICAID ==
[2017-09-10 00:24] VITALS: BP 122/91
[2017-09-10] MEDS ORDERED: Promethazine 25 MG/ML SDV IM ONE (00:35)
[2017-09-10] MEDS ORDERED: Meperidine PF 50 MG/ML Syringe IM ONE (00:36)
[2017-09-10] MEDS ORDERED: Butorphanol 2 MG/ML SDV IM ONE (00:45)
--- NOTE | 2017-09-10 08:16 | ER ---
SUBJECTIVE: The patient is a 42-year-old female, who was in the ER earlier. She states she has had anxiety for a week and had some double vision on and off for a weeks. No head trauma. No other changes. No other neurologic changes. She did have a head CT, and it was not remarkable for any acute findings. She comes in now a few hours later, stating she went home, she was anxious, and she began to get right-sided headache behind her right eye with nausea and vomiting. Bright lights hurt her eyes. She states it is similar to headaches she used to have before she had a hysterectomy, and she used to get headaches with her menstrual cycle. Again, she denies any head trauma, falls, any ear pain, sinus pain, throat pain, chest pain, shortness of breath. She does have some nausea and vomiting. No bowel or bladder changes. Denies . No incontinence. PAST MEDICAL HISTORY: Significant for migraine headaches, sinusitis, TMJ pain. She has had a sinus surgery. She has had a T and A. she has had septoplasty and bilateral turbinoplasty. Hyperlipidemia, mitral valve prolapse, asthma, recurrent bronchitis, colitis. She has had her appendix and gallbladder removed. She has had colonoscopies, EGDs, esophageal dilatations, hernia repair, adhesiolysis of abdominal adhesions. She had umbilical hernia with repair as a child. She has had complete hysterectomy, previous pregnancies with SABs, osteoporosis, plantar fasciitis, left wrist surgery with a ganglion cystectomy. Hypothyroidism, had Juan thyroiditis with thyroidectomy. Insomnia, cellulitis, dry skin, multiple addictions, anxiety, depression. CURRENT MEDICATIONS: Include: 1. Synthroid 250 mcg p.o. daily. 2. Effexor 37.5 mg p.o. daily. 3. Effexor 75 mg p.o. daily. ALLERGIES: She is allergic to Soma, not sure why. Diclofenac causes a rash. Lexapro causes a rash. Robitussin cough syrup causes hives. Relafen, she does not recall. Penicillin causes hives. Compazine, she does not recall. Vioxx, does not recall. Tramadol causes a rash. Vancomycin causes redness. SOCIAL HISTORY: She has been smoking cigarettes for 20 years. REVIEW OF SYSTEMS: No falls or trauma assault. No syncope or near syncope. No seizures. No ear or sinus pain. No throat pain. No chest pain, shortness of breath. She does have some nausea, vomiting. It is nonbloody. She denies any bowel or bladder changes, any bites, stings, or rashes. OBJECTIVE: Vital Signs: Stable. She is afebrile. General: She is ambulatory. A and O x3. GCS of 15. She is good historian. She is quite interactive and does not appear in any distress. HEENT: She is normocephalic and atraumatic. HEENT exam not remarkable. Eyes remain stable. They are clear. Funduscopic exam not remarkable. PERRLA and EOMI. Neck: Not remarkable. Lungs: No respiratory distress. Good pulses. Extremities: Moves all extremities well. Neurologic: Normal gait. Normal station. Normal speech. Exam is quite unremarkable and neurologic exam nonfocal. EMERGENCY ROOM COURSE: She was given 2 mg of Stadol and an injection of promethazine. She did tolerate this well and felt improved. ASSESSMENT: Migraine headache on the right side with associated nausea and vomiting. PLAN: Home. Dark, quiet sleep; relax; keep hydrated; bland diet. Follow up with PCP as needed. Return for any emergent issues. [facility] /[id number]
== END 2017-09-10 01:47 | disposition home or self-care (01) ==
LOC: DL.ED 23:46
DX: G43.909 Migraine, unspecified, not intractable, without status migrainosus (principal); F17.210 Nicotine dependence, cigarettes, uncomplicated; Z90.710 Acquired absence of both cervix and uterus; Z79.899 Other long term (current) drug therapy; Z88.8 Allergy status to other drugs, medicaments and biological substances; Z88.0 Allergy status to penicillin; Z88.6 Allergy status to analgesic agent; Z88.1 Allergy status to other antibiotic agents
CPT/HCPCS: 96372; 99283; J0595; J2550

== ENCOUNTER 2017-11-17 06:54 | Day surgery (SDC) | payer MEDICAID ==
[~2017-11-17 06:54] MED LIST changes: +Lactated Ringers 1,000 ML IV SCH
[2017-11-17] MEDS ORDERED: Ondansetron 4 MG/2 ML SDV IV ONE (06:55)
[2017-11-17] MEDS ORDERED: fentaNYL 100 MCG/2 ML SDV IV ONE (06:55)
[2017-11-17] MEDS ORDERED: Ketorolac 30 MG/ML SDV IVPUSH ONE (06:55)
[2017-11-17] MEDS ORDERED: Midazolam 1 MG/ML 2 ML SDV IV ONE (06:55)
[2017-11-17] MEDS ORDERED: Propofol 200 MG/20 ML SDV IV ONE (06:55)
[2017-11-17] MEDS ORDERED: Bupivacaine 0.5% 30 ML SDV ONE (08:00)
[2017-11-17] MEDS ORDERED: Lidocaine 1% 30 ML SDV ONE (08:00)
[2017-11-17] MEDS ORDERED: Bupivacaine 0.5% 30 ML SDV INJECT ONE ×3 (08:35→09:22)
[2017-11-17] MEDS ORDERED: Lidocaine 1% 30 ML SDV INJECT ONE ×3 (08:35→09:22)
[2017-11-17] MEDS ORDERED: Acetaminophen/oxyCODONE 325-5 MG Tab PO PRN (09:38)
--- NOTE | 2017-11-17 09:38 | PCM.OPNOTE ---
- General Post-Op/Procedure Note Date of Surgery/Procedure: 11/17/17 Operative Procedure(s): right foot open plantar fasciectomy/scar tissue excision Pre Op Diagnosis: right foot plantar fasciitis and painful scar tissue Post-Op Diagnosis: gio Anesthesia Technique: Local, MAC Primary Surgeon: Ericka Tariq Anesthesia Provider: Sunil Kaur EBL in mLs: 5 Complications: none Condition: Good Free Text/Narrative:: Pt tolerated procedure well and was transported to recovery with vascular status intact to right foot. TT 36 mins. Well padded compression dressing applied.
[2017-11-17 14:16] VITALS: BP 131/94
--- NOTE | 2017-11-18 00:38 | OR ---
DATE: 11/17/2017 PREOPERATIVE DIAGNOSIS: Right foot plantar fasciitis with painful scar tissue. POSTOPERATIVE DIAGNOSIS: Right foot plantar fasciitis with painful scar tissue. PROCEDURE PERFORMED: Right foot open plantar fasciectomy with scar tissue removal. ANESTHESIA: Local MAC with preoperative local block of 10 mL of 1:1 mixture of 1% lidocaine plain and 0.5% Marcaine plain. TOURNIQUET TIME: 36 minutes, pneumatic ankle tourniquet. ESTIMATED BLOOD LOSS: Minimal. SPECIMEN: None. COMPLICATIONS: None. INDICATIONS: Jennifer is a 42-year-old female who presents for continued right foot pain. We did a plantar fascia release on her right foot approximately 1 year ago. She did have some relief after the surgery; however, now her pain has returned, and she has been having problems with scar tissue in that area that is painful. It is painful whenever she is standing or walking. She does have good custom orthotics, which she wears at all times. I had also done her left foot plantar fascia release and scar tissue excision removal a few months ago, and she has healed very well from this and would like the same surgery on the right foot. The patient voiced good understanding of proposed procedure and possible complications and elects to have surgery at this time. DESCRIPTION OF PROCEDURE: The patient was taken to the operating room lying in supine position. After adequate anesthesia induction as described above, the right foot was prepped and draped in the usual sterile fashion. A pneumatic ankle tourniquet was inflated to 225 mmHg. Attention was then directed to the right foot at the instep just distal to the calcaneus at the old incision site, where an approximately 4 cm linear incision was made on the plantar aspect of the foot to gain access to the plantar fascia band. There was noted to be thick scar tissue in this area, which was excised. Sharp and blunt dissection were performed down to the level of the central and medial band of the plantar fascia. A large amount of the medial and central band of the plantar fascia was resected from the foot. Approximately 2 cm2 of this was removed. Inspection of the site revealed no further tightness at the plantar fascia in this area, also scar tissue was excised, and there was no remaining scar tissue in this area. The site was then irrigated with copious amounts of sterile saline. Deep closure was completed with 3-0 Vicryl, and skin closure was completed with 4-0 nylon. The wound was dressed with Xeroform to the incision site, fluffs, gauze, and Webril. A well-padded compression dressing was applied, and a Cam boot was placed. The patient tolerated the procedure and anesthesia well and left the operating room for recovery with vital signs stable and in good condition with vascular status intact to the right foot as noted by immediate hyperemia upon deflation of the ankle tourniquet. The patient was then discharged home when she met hospital discharge requirements. [facility] /[id number]
== END 2017-11-17 10:34 | disposition home or self-care (01) ==
LOC: EEVIPCON 06:54 → DL.SDS 06:54
PROVIDERS: ATTEND Podiatrist
DX: M72.2 Plantar fascial fibromatosis (principal); E06.3 Autoimmune thyroiditis; E53.8 Deficiency of other specified B group vitamins; G47.00 Insomnia, unspecified; I34.1 Nonrheumatic mitral (valve) prolapse; M81.0 Age-related osteoporosis without current pathological fracture; F17.210 Nicotine dependence, cigarettes, uncomplicated; Z79.899 Other long term (current) drug therapy; Z88.0 Allergy status to penicillin; Z88.1 Allergy status to other antibiotic agents; Z88.5 Allergy status to narcotic agent; Z88.8 Allergy status to other drugs, medicaments and biological substances
CPT/HCPCS: 01480; 28060; J1885; J2250; J2405; J2704; J3010; J7120

== ENCOUNTER 2018-06-10 22:48 | Emergency (ER) | payer MEDICAID ==
[2018-06-10 22:55] VITALS: BP 151/110
[2018-06-10] MEDS ORDERED: Promethazine 25 MG/ML SDV IM ONE (23:23)
[2018-06-10] MEDS ORDERED: Butorphanol 2 MG/ML SDV IM ONE (23:23)
--- NOTE | 2018-06-10 23:36 | EDM.PDOC ---
ED HPI GENERAL MEDICAL PROBLEM - General Chief Complaint: Cardiovascular Problem Stated Complaint: BLOOD PRESSURE HIGH, Time Seen by Provider: 06/10/18 23:32 Source of Information: Reports: Patient History Limitations: Reports: No Limitations - History of Present Illness INITIAL COMMENTS - FREE TEXT/NARRATIVE: states been under lot of stress and felt like BP is high and took it at [facility] and was high. c/o VALLE but no real CP/SOB which she does have on-off from anxiety and insomnia. Right Foot Pain Score (Numeric/FACES): 4 Headache Pain Score (Numeric/FACES): 5 - Related Data Allergies Allergy/AdvReac Type Severity Reaction Status Date / Time benzonatate Allergy Itching Verified 04/16/18 01:48 [From Tessalon Perles] carisoprodol [From Soma] Allergy Cannot Verified 04/16/18 01:48 Remember diclofenac Allergy Rash Verified 04/16/18 01:48 escitalopram [From Lexapro] Allergy Rash Verified 04/16/18 01:48 guaifenesin [From Robitussin] Allergy Hives Verified 04/16/18 01:48 nabumetone [From Relafen] Allergy Rash Verified 04/16/18 01:48 Penicillins Allergy Hives Verified 04/16/18 01:48 prochlorperazine edisylate Allergy Other Verified 04/16/18 01:48 [From Compazine] prochlorperazine maleate Allergy Other Verified 04/16/18 01:48 [From Compazine] rofecoxib [From Vioxx] Allergy Cannot Verified 04/16/18 01:48 Remember tramadol [From Ultram] Allergy Rash Verified 04/14/18 15:41 vancomycin Allergy Redness Verified 04/14/18 15:41 TUSNEL Allergy Rash Uncoded 04/14/18 15:41 Home Meds: Home Meds Albuterol Sulfate [Proventil Hfa] 1 puff INH ASDIRECTED PRN 11/14/17 [History] Cholecalciferol (Vitamin D3) [Vitamin D] 50,000 unit PO .TWICEWEEKLY 11/14/17 [ History] Folic Acid 1 mg PO DAILY 11/14/17 [History] Levothyroxine [Synthroid] 250 mcg PO DAILY 11/14/17 [History] Mirtazapine [Remeron] 30 mg PO BEDTIME 11/14/17 [History] Naproxen [Naprosyn] 500 mg PO ASDIRECTED PRN 11/14/17 [History] Ondansetron [Ondansetron ODT] 4 mg PO Q8H PRN 11/14/17 [History] Theanine [l-Theanine] 50 mg PO DAILY 11/14/17 [History] atorvaSTATin [Lipitor] 20 mg PO DAILY 11/14/17 [History] LORazepam 1 mg PO Q8H PRN 11/17/17 [History] Naproxen Sodium [Aleve] 220 mg PO ASDIRECTED PRN 04/14/18 [History] Past Medical History HEENT History: Reports: Sinusitis, Other (See Below) Other HEENT History: TMJ pain. 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 Musculoskeletal History: Reports: Osteoporosis Other Musculoskeletal History: plantar fasceitis Neurological History: Reports: Migraines, Other (See Below) Other Neuro History: INSOMNIA Psychiatric History: Reports: Addiction, Anxiety, Depression Other Psychiatric History: Hx substance abuse Endocrine/Metabolic History: Reports: Hypothyroidism, Osteoporosis, Other (See Below) Other Endocrine/Metabolic History: HX OF CECILIA'S THYROIDITIS Hematologic History: Reports: B12 Deficiency, Other (See Below) Other Hematologic History: hashimotos Immunologic History: Reports: None Oncologic (Cancer) History: Reports: None Dermatologic History: Reports: Cellulitis, Eczema - Infectious Disease History Infectious Disease History: Reports: Chicken Pox - Past Surgical History Head Surgeries/Procedures: Reports: None HEENT Surgical History: Reports: Adenoidectomy, Naso-Sinus Surgery, Tonsillectomy, Other (See Below) Other HEENT Surgeries/Procedures: septoplasty, bilateral turbinoplasty Cardiovascular Surgical History: Reports: None Respiratory Surgical History: Reports: None GI Surgical History: Reports: Appendectomy, Cholecystectomy, Colonoscopy, EGD, Esophageal Dilatation, Hernia Repair/Other, Lysis of Adhesions, Other (See Below ) Other GI Surgeries/Procedures: umbilical hernia as child. ABDOMINAL ADHESION SURGERY Female Surgical History: Reports: Hysterectomy, Salpingo-Oophorectomy Endocrine Surgical History: Reports: Thyroidectomy Musculoskeletal Surgical History: Reports: Other (See Below) Other Musculoskeletal Surgeries/Procedures:: "shortening" of left ulna bone, L) wrist arthroscopy, L) wrsit ganglion cyst removal Social & Family History - Family History Family Medical History: Noncontributory HEENT: Reports: None Cardiac: Reports: Arrhythmia Other Cardiac Family History: HEART SURGERY Respiratory: Reports: None GI: Reports: Cirrhosis, Other (See Below) Other GI Family History: COLON CA : Reports: None OBGYN: Reports: None Musculoskeletal: Reports: None Neurological: Reports: None Psychiatric: Reports: Autism Endocrine/Metabolic: Reports: Diabetes, type II, Other (See Below) Other Endocrine/Metabolic Family History: some kind of thyroid disease in aunt Hematologic: Reports: B12 Deficiency Immunologic: Reports: None Dermatologic: Reports: None Oncologic: Reports: Breast, Colon - Tobacco Use Smoking Status *Q: Current Every Day Smoker Years of Tobacco use: 19 Packs/Tins Daily: 1 Used Tobacco, but Quit: No Second Hand Smoke Exposure: Yes - Caffeine Use Caffeine Use: Reports: Soda Other Caffeine Use: 1-2 cans - Recreational Drug Use Recreational Drug Use: Yes Drug Use in Last 12 Months: No ED ROS GENERAL - Review of Systems Review Of Systems: ROS reveals no pertinent complaints other than HPI. ED EXAM, GENERAL - Physical Exam Exam: See Below Exam Limited By: No Limitations General Appearance: Alert, WD/WN, Anxious, Mild Distress Eye Exam: Bilateral Eye: PERRL (pupils ER @ 4mm) Ears: Hearing Grossly Normal Throat/Mouth: Normal Voice, No Airway Compromise Head: Atraumatic Neck: Non-Tender, Full Range of Motion Respiratory/Chest: No Respiratory Distress Cardiovascular: Regular Rate, Rhythm GI/Abdominal: Soft, Non-Tender Neurological: Alert, Oriented, Normal Cognition, Normal Gait, No Motor/Sensory Deficits Psychiatric: Anxious Skin Exam: Warm, Dry, Normal Color Lymphatic: No Adenopathy Course - Vital Signs Last Recorded V/S: Last Vital Signs Temp 36.0 C 06/10/18 22:54 Pulse 89 06/10/18 22:54 Resp 16 06/10/18 22:54 BP 151/110 H 06/10/18 22:54 Pulse Ox 96 06/10/18 22:54 - Orders/Labs/Meds Meds: Medications Discontinued Medications Generic Name Dose Route Start Last Admin Trade Name Quynh PRN Reason Stop Dose Admin Butorphanol Tartrate 2 mg 06/10/18 23:23 06/10/18 23:34 Stadol IM 06/10/18 23:24 2 mg ONETIME ONE Administration Promethazine HCl 25 mg 06/10/18 23:23 06/10/18 23:34 Phenergan IM 06/10/18 23:24 25 mg ONETIME ONE Administration Departure - Departure Time of Disposition: 23:51 Disposition: Home, Self-Care 01 Clinical Impression: Migraine Qualifiers: Migraine type: without aura Status migrainosus presence: without status migrainosus Intractability: not intractable Qualified Code(s): G43.009 - Migraine without aura, not intractable, without status migrainosus Hypertension Qualifiers: Hypertension type: unspecified secondary hypertension Qualified Code(s): I15.9 - Secondary hypertension, unspecified Instructions: Hypertension, [id number] Forms: ED Department Discharge Additional Instructions: 1) check BP 3 to 4 times daily for next 5 to 7 days and keep record. 2) follow up at clinic for possible BP meds.
== END 2018-06-10 23:57 | disposition home or self-care (01) ==
LOC: DL.ED 22:48
DX: G43.009 Migraine without aura, not intractable, without status migrainosus (principal); I15.9 Secondary hypertension, unspecified; E78.00 Pure hypercholesterolemia, unspecified; J45.909 Unspecified asthma, uncomplicated; F41.9 Anxiety disorder, unspecified; F32.9 Major depressive disorder, single episode, unspecified; E03.9 Hypothyroidism, unspecified; F17.210 Nicotine dependence, cigarettes, uncomplicated; Z88.8 Allergy status to other drugs, medicaments and biological substances; Z88.0 Allergy status to penicillin; Z88.5 Allergy status to narcotic agent; Z79.899 Other long term (current) drug therapy
CPT/HCPCS: 96372; 99283; J0595; J2550

== ENCOUNTER 2018-08-24 07:05 | Day surgery (SDC) | payer MEDICAID ==
[2018-08-24] MEDS ORDERED: Propofol 200 MG/20 ML SDV IV ONE (07:06)
[2018-08-24] MEDS ORDERED: Ondansetron 4 MG/2 ML SDV IV ONE (07:06)
[2018-08-24] MEDS ORDERED: Ketorolac 30 MG/ML SDV IVPUSH ONE (07:06)
[2018-08-24] MEDS ORDERED: fentaNYL 100 MCG/2 ML SDV IV ONE (07:06)
[2018-08-24] MEDS ORDERED: Bupivacaine 0.5% 30 ML SDV INJECT ONE ×3 (07:06→09:05)
[2018-08-24] MEDS ORDERED: Dexamethasone 4 MG/ML SDV IV ONE (07:06)
[2018-08-24] MEDS ORDERED: Lidocaine 1% 30 ML SDV INJECT ONE ×3 (07:06→09:05)
[2018-08-24] MEDS ORDERED: Midazolam 1 MG/ML 2 ML SDV IV ONE (07:06)
[2018-08-24] MEDS ORDERED: Bupivacaine 0.5% 30 ML SDV ONE (07:39)
[2018-08-24] MEDS ORDERED: Lidocaine 1% 30 ML SDV ONE (07:39)
[2018-08-24] MEDS ORDERED: Acetaminophen/oxyCODONE 325-5 MG Tab PO PRN (09:30)
--- NOTE | 2018-08-24 09:30 | PCM.OPNOTE ---
- General Post-Op/Procedure Note Date of Surgery/Procedure: 08/24/18 Operative Procedure(s): right foot scar tissue excision Pre Op Diagnosis: right foot painful scar tissue Post-Op Diagnosis: gio Anesthesia Technique: Local, MAC Primary Surgeon: Ericka Tariq Anesthesia Provider: Cabrera Carcamo EBL in mLs: 5 Complications: none Condition: Good Free Text/Narrative:: Pt tolerated procedure well and was transported to recovery with vascular status intact to right foot. Well padded compression dressing applied, foot at neutral in cam boot nwb.
[2018-08-24 12:23] VITALS: BP 124/81; PULSE 57
--- NOTE | 2018-08-24 17:41 | OR ---
DATE: 08/24/2018 PREOPERATIVE DIAGNOSIS: Right foot scar tissue, painful. POSTOPERATIVE DIAGNOSIS: Right foot scar tissue, painful. PROCEDURE PERFORMED: Right foot scar tissue excision. ANESTHESIA: Local MAC with preoperative local block of 10 mL 1:1 mixture of 1% lidocaine plain and 0.5% Marcaine plain. TOURNIQUET TIME: 24 minutes, pneumatic ankle tourniquet. ESTIMATED BLOOD LOSS: Minimal. SPECIMEN: None. COMPLICATIONS: None. INDICATIONS: Jennifer is a 42-year-old female, who presents with painful scar tissue on the bottom of her right foot. She has history of plantar fascia release in that area. She has history of growing a lot of painful scar tissue after all of her surgeries. On her left foot, we also had to do a scar tissue removal after her plantar fascia release and she would like the same thing done on this right foot. She reports it has been painful now again and she has tried physical therapy and a couple of different cortisone injections to the area with no relief. She has also been stretching and using her orthotics. She states it is painful right at the area of the palpable scar tissue. This worked well for her left foot, so she would like the same on her right. The patient voiced good understanding of proposed procedure and possible complications and likes to have surgery at this time. I did discuss that this may not work and she could possibly develop the same scar tissue again. She understands and wants to go ahead. DESCRIPTION OF PROCEDURE: The patient was taken to the operating room lying in supine position. After adequate anesthesia induction as described above, the right foot was prepped and draped in the usual sterile fashion. Pneumatic ankle tourniquet was inflated to 225 mmHg. Attention was then directed to the area of the plantar scar just distal to the plantar fat pad of the calcaneus. An incision was made at the same incision line as before. This is where the palpable scar tissue is. Sharp dissection was performed down to the level of the scar tissue. The scar tissue was excised using a #15 blade as cleanly and atraumatically as possible to help prevent new scar tissue from forming. The area was then inspected and all scar tissue had been released and removed. There was no tightness in the area and there was no tightness at the area of prior surgery where the plantar fascia band had been released. The area was then irrigated with copious amounts of sterile saline. Deep closure was completed with 3-0 Vicryl and skin closure was completed with 4-0 nylon. The area was then dressed with Xeroform to the incision site, fluffs, Webril, and a well-padded compression dressing. The patient tolerated anesthesia well and was transported to recovery with vital signs stable and vascular status intact as noted by immediate hyperemia to all digits upon deflation of the ankle tourniquet. She will be nonweightbearing and was given postoperative care instructions. She was discharged home once she met discharge requirements. [facility] /[id number]
== END 2018-08-24 10:39 | disposition home or self-care (01) ==
LOC: DL.SDS 07:05
PROVIDERS: ATTEND Podiatrist
DX: L90.5 Scar conditions and fibrosis of skin (principal); E53.8 Deficiency of other specified B group vitamins; F17.210 Nicotine dependence, cigarettes, uncomplicated; F41.9 Anxiety disorder, unspecified; Z88.1 Allergy status to other antibiotic agents; Z88.8 Allergy status to other drugs, medicaments and biological substances
CPT/HCPCS: 13131; J1100; J1885; J2001; J2250; J2405; J2704; J3010; J3490; J7120

== ENCOUNTER 2019-03-06 00:44 | Emergency (ER) | payer MEDICAID, OTHER ==
[2019-03-06] MEDS: Butorphanol 2 MG/ML SDV IM ONE (01:48)
[2019-03-06] MEDS: Promethazine 25 MG/ML SDV IM ONE (01:49)
[2019-03-06 02:16] VITALS: BP 111/85; PULSE 100
--- NOTE | 2019-03-06 02:18 | EDM.PDOC ---
ED HPI GENERAL MEDICAL PROBLEM - General Chief Complaint: Headache Stated Complaint: MIGRAINE Time Seen by Provider: 03/06/19 01:17 Source of Information: Reports: Patient History Limitations: Reports: No Limitations - History of Present Illness INITIAL COMMENTS - FREE TEXT/NARRATIVE: Patient is a 43-year-old female with a history of migraines who presents with migraine that started about 3 hours ago. States she was lying down when the migraine came on. Denies any known triggers at this time. She tried Aleve and Excedrin for migraine with no relief. States she drank a lot of water with no relief. Admits to nausea, photophobia and pain in her right eye. Has not vomited. Denies any head trauma, injury or fall. Denies any history of neurological problems at this time. 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: Excederin Migraine, Aleve 500 mg, and Zofran 4 mg Right Anterior Frontal Forehead Pain Score (Numeric/FACES): 9 - Related Data Allergies Allergy/AdvReac Type Severity Reaction Status Date / Time benzonatate Allergy Itching Verified 03/06/19 01:01 [From Tessalon Perles] carisoprodol [From Soma] Allergy Cannot Verified 03/06/19 01:01 Remember diclofenac Allergy Rash Verified 03/06/19 01:01 escitalopram [From Lexapro] Allergy Rash Verified 03/06/19 01:01 guaifenesin [From Robitussin] Allergy Hives Verified 03/06/19 01:01 nabumetone [From Relafen] Allergy Rash Verified 03/06/19 01:01 Penicillins Allergy Hives Verified 03/06/19 01:01 prochlorperazine edisylate Allergy Other Verified 03/06/19 01:01 [From Compazine] prochlorperazine maleate Allergy Other Verified 03/06/19 01:01 [From Compazine] rofecoxib [From Vioxx] Allergy Cannot Verified 03/06/19 01:01 Remember tramadol [From Ultram] Allergy Rash Verified 03/06/19 01:01 vancomycin Allergy Redness Verified 03/06/19 01:01 TUSNEL Allergy Rash Uncoded 03/06/19 01:01 Home Meds: Home Meds Albuterol Sulfate [Proventil Hfa] 1 puff INH ASDIRECTED PRN 11/14/17 [History] Cholecalciferol (Vitamin D3) [Vitamin D] 50,000 unit PO .TWICEWEEKLY 11/14/17 [ History] Folic Acid 1 mg PO DAILY 11/14/17 [History] Levothyroxine [Synthroid] 250 mcg PO DAILY 11/14/17 [History] Naproxen [Naprosyn] 500 mg PO ASDIRECTED PRN 11/14/17 [History] Ondansetron [Ondansetron ODT] 4 mg PO Q8H PRN 11/14/17 [History] Theanine [l-Theanine] 50 mg PO DAILY 11/14/17 [History] atorvaSTATin [Lipitor] 20 mg PO DAILY 11/14/17 [History] LORazepam 1 mg PO Q8H PRN 11/17/17 [History] Prazosin [Minpress] 2 mg PO BEDTIME 08/23/18 [History] Past Medical History HEENT History: Reports: Sinusitis, Other (See Below) Other HEENT History: TMJ pain. 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 Musculoskeletal History: Reports: Osteoporosis Other Musculoskeletal History: plantar fasceitis Neurological History: Reports: Migraines, Other (See Below) Other Neuro History: INSOMNIA Psychiatric History: Reports: Addiction, Anxiety, Depression Other Psychiatric History: Hx substance abuse Endocrine/Metabolic History: Reports: Hypothyroidism, Osteoporosis, Other (See Below) Other Endocrine/Metabolic History: HX OF CECILIA'S THYROIDITIS Hematologic History: Reports: B12 Deficiency, Other (See Below) Other Hematologic History: hashimotos Immunologic History: Reports: None Oncologic (Cancer) History: Reports: None Dermatologic History: Reports: Cellulitis, Eczema - Infectious Disease History Infectious Disease History: Reports: Chicken Pox - Past Surgical History Head Surgeries/Procedures: Reports: None HEENT Surgical History: Reports: Adenoidectomy, Naso-Sinus Surgery, Tonsillectomy, Other (See Below) Other HEENT Surgeries/Procedures: septoplasty, bilateral turbinoplasty Cardiovascular Surgical History: Reports: None Respiratory Surgical History: Reports: None GI Surgical History: Reports: Appendectomy, Cholecystectomy, Colonoscopy, EGD, Esophageal Dilatation, Hernia Repair/Other, Lysis of Adhesions, Other (See Below ) Other GI Surgeries/Procedures: umbilical hernia as child. ABDOMINAL ADHESION SURGERY Female Surgical History: Reports: Hysterectomy, Salpingo-Oophorectomy Endocrine Surgical History: Reports: Thyroidectomy Musculoskeletal Surgical History: Reports: Other (See Below) Other Musculoskeletal Surgeries/Procedures:: "shortening" of left ulna bone, L) wrist arthroscopy, L) wrsit ganglion cyst removal Social & Family History - Family History Family Medical History: Noncontributory HEENT: Reports: None Cardiac: Reports: Arrhythmia Other Cardiac Family History: HEART SURGERY Respiratory: Reports: None GI: Reports: Cirrhosis, Other (See Below) Other GI Family History: COLON CA : Reports: None OBGYN: Reports: None Musculoskeletal: Reports: None Neurological: Reports: None Psychiatric: Reports: Autism Endocrine/Metabolic: Reports: Diabetes, type II, Other (See Below) Other Endocrine/Metabolic Family History: some kind of thyroid disease in aunt Hematologic: Reports: B12 Deficiency Immunologic: Reports: None Dermatologic: Reports: None Oncologic: Reports: Breast, Colon - Tobacco Use Smoking Status *Q: Current Every Day Smoker Years of Tobacco use: 20 Packs/Tins Daily: 0.5 Second Hand Smoke Exposure: Yes - Caffeine Use Caffeine Use: Reports: Soda Other Caffeine Use: 1-2 cans - Recreational Drug Use Recreational Drug Use: No ED ROS GENERAL - Review of Systems Review Of Systems: ROS reveals no pertinent complaints other than HPI. - Physical Exam Exam: See Below Exam Limited By: No Limitations General Appearance: Alert, WD/WN, Moderate Distress Eye Exam: Bilateral Eye: EOMI, Normal Inspection, PERRL Ears: Normal External Exam, Normal Canal, Hearing Grossly Normal, Normal TMs Nose: Normal Inspection, Normal Mucosa, No Blood Throat/Mouth: Normal Inspection, Normal Lips, Normal Teeth, Normal Gums, Normal Oropharynx, Normal Voice, No Airway Compromise Head Exam: Atraumatic, Normocephalic Neck: Normal Inspection, Supple, Non-Tender, Full Range of Motion Respiratory/Chest: No Respiratory Distress, Lungs Clear, Normal Breath Sounds, No Accessory Muscle Use, Chest Non-Tender Cardiovascular: Normal Peripheral Pulses, Regular Rate, Rhythm, No Edema, No Gallop, No JVD, No Murmur, No Rub Neuro Exam (Abbreviated): Alert, Oriented, CN II-XII Intact, Normal Cognition, Normal Gait, Normal Reflexes, No Motor/Sensory Deficits Course - Vital Signs Last Recorded V/S: Last Vital Signs Temp 96 F 03/06/19 02:16 Pulse 100 03/06/19 02:16 Resp 18 03/06/19 02:16 BP 111/85 03/06/19 02:16 Pulse Ox 95 03/06/19 02:16 - Orders/Labs/Meds Meds: Medications Discontinued Medications Generic Name Dose Route Start Last Admin Trade Name Quynh PRN Reason Stop Dose Admin Butorphanol Tartrate 2 mg 03/06/19 01:33 03/06/19 01:48 Stadol IM 03/06/19 01:34 2 mg ONETIME ONE Administration Promethazine HCl 25 mg 03/06/19 01:33 03/06/19 01:49 Phenergan IM 03/06/19 01:34 25 mg ONETIME ONE Administration - Re-Assessments/Exams Free Text/Narrative Re-Assessment/Exam: Patient presents with a migraine x3 hours ago. Has a history of migraines and reports she was last seen in the ER about 4 months ago. She has tried Aleve and Excedrin at home with no relief. Does not really know the triggers of her migraine. Was administered Stadol and Phenergan with relief noted. Encouraged to follow up with PCP for reassessment or referral to neurologist. Departure - Departure Time of Disposition: 02:13 Disposition: Home, Self-Care 01 Condition: Good Clinical Impression: Migraine Qualifiers: Migraine type: without aura Status migrainosus presence: without status migrainosus Intractability: not intractable Qualified Code(s): G43.009 - Migraine without aura, not intractable, without status migrainosus - Discharge Information *PRESCRIPTION DRUG MONITORING PROGRAM REVIEWED*: Not Applicable *COPY OF PRESCRIPTION DRUG MONITORING REPORT IN PATIENT RIGO: Not Applicable Instructions: Migraine Headache, [id number] Forms: ED Department Discharge Care Plan Goals: Stadol and Phenergan IM administered with relief reported. Encouraged to follow up with her PCP in the clinic. Symptoms to return to the ER discussed with patient and she verbalized understanding.
== END 2019-03-06 02:25 | disposition home or self-care (01) ==
LOC: DL.ED 00:44
DX: G43.909 Migraine, unspecified, not intractable, without status migrainosus (principal); J45.909 Unspecified asthma, uncomplicated; F41.9 Anxiety disorder, unspecified; F32.9 Major depressive disorder, single episode, unspecified; E03.9 Hypothyroidism, unspecified; F17.210 Nicotine dependence, cigarettes, uncomplicated; Z88.6 Allergy status to analgesic agent; Z88.1 Allergy status to other antibiotic agents; Z88.5 Allergy status to narcotic agent; Z88.0 Allergy status to penicillin; Z88.8 Allergy status to other drugs, medicaments and biological substances; Z79.899 Other long term (current) drug therapy
CPT/HCPCS: 96372; 99283; J0595; J2550

== ENCOUNTER 2019-07-14 02:28 | Emergency (ER) | payer MEDICAID ==
[2019-07-14 03:34] VITALS: BP 126/91; PULSE 95
[2019-07-14] MEDS ORDERED: Ketorolac 30 MG/ML SDV IVPUSH ONE (04:34)
[2019-07-14] MEDS ORDERED: Ondansetron 4 MG/2 ML SDV IV ONE (04:34)
[2019-07-14] MEDS ORDERED: Sodium Chloride 0.9% 1,000 ML IV ONE (04:34)
[2019-07-14] MEDS ORDERED: diphenhydrAMINE 50 MG/ML SDV IVPUSH ONE (04:34)
[2019-07-14] MEDS: Sodium Chloride 0.9% 10 ML Syringe FLUSH PRN ×2 (05:01→06:06)
--- NOTE | 2019-07-14 05:26 | EDM.PDOC ---
ED HPI GENERAL MEDICAL PROBLEM - General Chief Complaint: Headache Stated Complaint: BAD MIGRAINE Time Seen by Provider: 07/14/19 04:30 Source of Information: Reports: Patient, RN, RN Notes Reviewed History Limitations: Reports: No Limitations - History of Present Illness INITIAL COMMENTS - FREE TEXT/NARRATIVE: patient presents to ER with complaint of headache around the right eye. Patient states she used to have menstrual headaches, had a hysterectomy at age 22, and did not have headaches for many many years. Patient states last year she began having headaches again. Patient rates pain 8-9/10. States she is nauseated, sensitive to light, sensitive to sound. Patient states she does have a primary care provider that she follows up with.Patient states she does have someone here with her to drive her. 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 Right Eye Pain Score (Numeric/FACES): 8 - Related Data Allergies Allergy/AdvReac Type Severity Reaction Status Date / Time benzonatate Allergy Itching Verified 03/12/19 01:17 [From Tessalon Perles] carisoprodol [From Soma] Allergy Cannot Verified 03/12/19 01:17 Remember diclofenac Allergy Rash Verified 03/12/19 01:17 escitalopram [From Lexapro] Allergy Rash Verified 07/14/19 03:34 guaifenesin [From Robitussin] Allergy Hives Verified 07/14/19 03:34 nabumetone [From Relafen] Allergy Rash Verified 07/14/19 03:34 Penicillins Allergy Hives Verified 07/14/19 03:34 prochlorperazine edisylate Allergy Other Verified 07/14/19 03:34 [From Compazine] prochlorperazine maleate Allergy Other Verified 07/14/19 03:34 [From Compazine] rofecoxib [From Vioxx] Allergy Cannot Verified 07/14/19 03:34 Remember tramadol [From Ultram] Allergy Rash Verified 07/14/19 03:34 vancomycin Allergy Redness Verified 07/14/19 03:34 TUSNEL Allergy Rash Uncoded 07/14/19 03:34 Home Meds: Home Meds Albuterol Sulfate [Proventil Hfa] 1 puff INH ASDIRECTED PRN 11/14/17 [History] Cholecalciferol (Vitamin D3) [Vitamin D] 50,000 unit PO .TWICEWEEKLY 11/14/17 [ History] Folic Acid 1 mg PO DAILY 11/14/17 [History] Levothyroxine [Synthroid] 250 mcg PO DAILY 11/14/17 [History] Naproxen [Naprosyn] 500 mg PO ASDIRECTED PRN 11/14/17 [History] Ondansetron [Ondansetron ODT] 4 mg PO Q8H PRN 11/14/17 [History] Theanine [l-Theanine] 50 mg PO DAILY 11/14/17 [History] atorvaSTATin [Lipitor] 20 mg PO DAILY 11/14/17 [History] LORazepam 1 mg PO Q8H PRN 11/17/17 [History] Prazosin [Minpress] 2 mg PO BEDTIME 08/23/18 [History] Past Medical History HEENT History: Reports: Sinusitis, Other (See Below) Other HEENT History: TMJ pain. 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 Musculoskeletal History: Reports: Osteoporosis Other Musculoskeletal History: plantar fasceitis Neurological History: Reports: Migraines, Other (See Below) Other Neuro History: INSOMNIA Psychiatric History: Reports: Addiction, Anxiety, Depression Other Psychiatric History: Hx substance abuse Endocrine/Metabolic History: Reports: Hypothyroidism, Osteoporosis, Other (See Below) Other Endocrine/Metabolic History: HX OF CECILIA'S THYROIDITIS Hematologic History: Reports: B12 Deficiency, Other (See Below) Other Hematologic History: hashimotos Immunologic History: Reports: None Oncologic (Cancer) History: Reports: None Dermatologic History: Reports: Cellulitis, Eczema - Infectious Disease History Infectious Disease History: Reports: Chicken Pox - Past Surgical History Head Surgeries/Procedures: Reports: None HEENT Surgical History: Reports: Adenoidectomy, Naso-Sinus Surgery, Tonsillectomy, Other (See Below) Other HEENT Surgeries/Procedures: septoplasty, bilateral turbinoplasty Cardiovascular Surgical History: Reports: None Respiratory Surgical History: Reports: None GI Surgical History: Reports: Appendectomy, Cholecystectomy, Colonoscopy, EGD, Esophageal Dilatation, Hernia Repair/Other, Lysis of Adhesions, Other (See Below ) Other GI Surgeries/Procedures: umbilical hernia as child. ABDOMINAL ADHESION SURGERY Female Surgical History: Reports: Hysterectomy, Salpingo-Oophorectomy Endocrine Surgical History: Reports: Thyroidectomy Musculoskeletal Surgical History: Reports: Other (See Below) Other Musculoskeletal Surgeries/Procedures:: "shortening" of left ulna bone, L) wrist arthroscopy, L) wrsit ganglion cyst removal Social & Family History - Family History Family Medical History: Noncontributory HEENT: Reports: None Cardiac: Reports: Arrhythmia Other Cardiac Family History: HEART SURGERY Respiratory: Reports: None GI: Reports: Cirrhosis, Other (See Below) Other GI Family History: COLON CA : Reports: None OBGYN: Reports: None Musculoskeletal: Reports: None Neurological: Reports: None Psychiatric: Reports: Autism Endocrine/Metabolic: Reports: Diabetes, type II, Other (See Below) Other Endocrine/Metabolic Family History: some kind of thyroid disease in aunt Hematologic: Reports: B12 Deficiency Immunologic: Reports: None Dermatologic: Reports: None Oncologic: Reports: Breast, Colon - Tobacco Use Smoking Status *Q: Current Every Day Smoker Years of Tobacco use: 25 Packs/Tins Daily: 1 Used Tobacco, but Quit: No Second Hand Smoke Exposure: Yes - Caffeine Use Caffeine Use: Reports: Soda Other Caffeine Use: 1-2 cans - Recreational Drug Use Recreational Drug Use: No ED ROS GENERAL - Review of Systems Review Of Systems: Comprehensive ROS is negative, except as noted in HPI. - Physical Exam Exam: See Below Exam Limited By: No Limitations General Appearance: Alert, WD/WN, Moderate Distress Eye Exam: Bilateral Eye: EOMI, Normal Inspection Ears: Normal External Exam, Hearing Grossly Normal, Hearing Loss Nose: Normal Inspection Throat/Mouth: Normal Inspection, Normal Voice, No Airway Compromise Head Exam: Atraumatic, Normocephalic, Facial Tenderness Neck: Normal Inspection, Supple, Non-Tender, Full Range of Motion Respiratory/Chest: No Respiratory Distress, Lungs Clear, Normal Breath Sounds, No Accessory Muscle Use, Chest Non-Tender Cardiovascular: Normal Peripheral Pulses, Regular Rate, Rhythm, No Edema, No Gallop, No JVD, No Murmur, No Rub GI/Abdominal: Normal Bowel Sounds, Soft, Non-Tender (Female) Exam: Deferred Rectal (Female) Exam: Deferred Neuro Exam (Abbreviated): Alert, Oriented, CN II-XII Intact, Normal Cognition, Normal Gait, No Motor/Sensory Deficits Back Exam: Normal Inspection, Full Range of Motion Extremities: Normal Inspection, Normal Range of Motion, Non-Tender, No Pedal Edema, Normal Capillary Refill Psychiatric: Normal Affect, Normal Mood Skin Exam: Warm, Dry, Intact, Normal Color, No Rash Course - Vital Signs Last Recorded V/S: Last Vital Signs Temp 96.6 F L 07/14/19 03:28 Pulse 95 07/14/19 03:28 Resp 18 07/14/19 03:28 BP 126/91 H 07/14/19 03:28 Pulse Ox 97 07/14/19 03:28 - Orders/Labs/Meds Orders: Active Orders 24 hr Category Date Time Status Peripheral IV Care [RC] . DIRECTED Care 07/14/19 04:35 Active Sodium Chloride 0.9% [Saline Flush] Med 07/14/19 04:34 Active 10 ml FLUSH ASDIRECTED PRN Peripheral IV Insertion Adult [OM.PC] Stat Oth 07/14/19 04:33 Ordered Medication Orders Sodium Chloride (Saline Flush) 10 ml FLUSH ASDIRECTED PRN PRN Reason: Keep Vein Open Last Admin: 07/14/19 06:06 Dose: 10 ml Admin: 07/14/19 05:01 Dose: 10 ml Meds: Medications Generic Name Dose Route Start Last Admin Trade Name Freq PRN Reason Stop Dose Admin Sodium Chloride 10 ml 07/14/19 04:34 07/14/19 06:06 Saline Flush FLUSH 10 ml ASDIRECTED PRN Administration Keep Vein Open Discontinued Medications Generic Name Dose Route Start Last Admin Trade Name Freq PRN Reason Stop Dose Admin Butorphanol Tartrate 2 mg 07/14/19 05:56 07/14/19 06:04 Stadol IVPUSH 07/14/19 05:57 2 mg ONETIME ONE Administration Diphenhydramine HCl 25 mg 07/14/19 04:34 07/14/19 04:55 Benadryl IVPUSH 07/14/19 04:35 25 mg ONETIME ONE Administration Sodium Chloride 1,000 mls @ 999 mls/hr 07/14/19 04:34 07/14/19 04:52 Normal Saline IV 07/14/19 05:34 999 mls/hr .BOLUS ONE Administration Ketorolac Tromethamine 30 mg 07/14/19 04:34 07/14/19 04:58 Toradol IVPUSH 07/14/19 04:35 30 mg ONETIME ONE Administration Ondansetron HCl 4 mg 07/14/19 04:34 07/14/19 04:53 Zofran IV 07/14/19 04:35 4 mg ONETIME ONE Administration Departure - Departure Time of Disposition: 06:35 Disposition: Home, Self-Care 01 Condition: Fair Clinical Impression: Migraine - Discharge Information *PRESCRIPTION DRUG MONITORING PROGRAM REVIEWED*: No *COPY OF PRESCRIPTION DRUG MONITORING REPORT IN PATIENT RIGO: No Instructions: Migraine Headache, [id number], Recurrent Migraine Headache, [id number] Forms: ED Department Discharge Additional Instructions: Rest in a quiet, dark room Drink plenty of water Follow up with your primary care facility Sepsis Event Note - Evaluation Sepsis Screening Result: No Definite Risk - Focused Exam Vital Signs: Vital Signs Temp Pulse Resp BP Pulse Ox 07/14/19 03:28 96.6 F L 95 18 126/91 H 97 Date Exam was Performed: 07/14/19 Time Exam was Performed: 06:35 - My Orders Last 24 Hours: My Active Orders 07/14/19 04:33 Peripheral IV Insertion Adult [OM.PC] Stat 07/14/19 04:34 Sodium Chloride 0.9% [Saline Flush] 10 ml FLUSH ASDIRECTED PRN 07/14/19 04:35 Peripheral IV Care [RC] . DIRECTED - Assessment/Plan Last 24 Hours: My Active Orders 07/14/19 04:33 Peripheral IV Insertion Adult [OM.PC] Stat 07/14/19 04:34 Sodium Chloride 0.9% [Saline Flush] 10 ml FLUSH ASDIRECTED PRN 07/14/19 04:35 Peripheral IV Care [RC] . DIRECTED
[2019-07-14] MEDS ORDERED: Butorphanol 2 MG/ML SDV IVPUSH ONE (05:56)
== END 2019-07-14 06:45 | disposition home or self-care (01) ==
LOC: DL.ED 02:28
DX: G43.909 Migraine, unspecified, not intractable, without status migrainosus (principal); F17.210 Nicotine dependence, cigarettes, uncomplicated; E78.00 Pure hypercholesterolemia, unspecified; F41.9 Anxiety disorder, unspecified; F32.9 Major depressive disorder, single episode, unspecified; E03.9 Hypothyroidism, unspecified; J45.909 Unspecified asthma, uncomplicated; Z79.899 Other long term (current) drug therapy; Z88.6 Allergy status to analgesic agent; Z88.0 Allergy status to penicillin; Z88.8 Allergy status to other drugs, medicaments and biological substances
CPT/HCPCS: 96361; 96374; 96375; 99283; J0595; J1200; J1885; J2405; J7030

== ENCOUNTER 2019-10-29 19:15 | Emergency (ER) | payer MEDICAID ==
[2019-10-29] MEDS ORDERED: Clindamycin HCl 150 MG Cap PO ONE (19:27)
[2019-10-29] MEDS ORDERED: Lidocaine 2% Viscous Solution 15 ML Cup PO ONE (19:27)
[2019-10-29 19:34] VITALS: BP 153/111; PULSE 117
--- NOTE | 2019-10-29 19:36 | EDM.PDOC ---
ED HPI GENERAL MEDICAL PROBLEM - General Chief Complaint: ENT Problem Stated Complaint: infected tooth Time Seen by Provider: 10/29/19 19:20 Source of Information: Reports: Patient History Limitations: Reports: No Limitations - History of Present Illness INITIAL COMMENTS - FREE TEXT/NARRATIVE: This 44 yo female patient reports to the ED with right upper posterior dental pain. The patient reports she has been on antibiotics (Clindamycin) for 1 week, but has continued to have pain. The patient has not been able to get into the dentist due to not having insurance. 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: Acetaminophen, Other (see below) (Oxycodone) - Related Data Allergies Allergy/AdvReac Type Severity Reaction Status Date / Time benzonatate Allergy Itching Verified 10/29/19 19:25 [From Tessalon Perles] carisoprodol [From Soma] Allergy Cannot Verified 10/29/19 19:25 Remember diclofenac Allergy Rash Verified 10/29/19 19:25 escitalopram [From Lexapro] Allergy Rash Verified 10/29/19 19:25 guaifenesin [From Robitussin] Allergy Hives Verified 10/29/19 19:25 nabumetone [From Relafen] Allergy Rash Verified 10/29/19 19:25 Penicillins Allergy Hives Verified 10/29/19 19:25 prochlorperazine edisylate Allergy Other Verified 10/29/19 19:25 [From Compazine] prochlorperazine maleate Allergy Other Verified 10/29/19 19:25 [From Compazine] rofecoxib [From Vioxx] Allergy Cannot Verified 10/29/19 19:25 Remember tramadol [From Ultram] Allergy Rash Verified 10/29/19 19:25 vancomycin Allergy Redness Verified 10/29/19 19:25 TUSNEL Allergy Rash Uncoded 10/29/19 19:25 Home Meds: Home Meds Albuterol Sulfate [Proventil Hfa] 1 puff INH ASDIRECTED PRN 11/14/17 [History] Cholecalciferol (Vitamin D3) [Vitamin D] 50,000 unit PO .TWICEWEEKLY 11/14/17 [ History] Folic Acid 1 mg PO DAILY 11/14/17 [History] Levothyroxine [Synthroid] 275 mcg PO DAILY 11/14/17 [History] Naproxen [Naprosyn] 500 mg PO ASDIRECTED PRN 11/14/17 [History] Ondansetron [Ondansetron ODT] 4 mg PO Q8H PRN 11/14/17 [History] Theanine [l-Theanine] 50 mg PO DAILY 11/14/17 [History] atorvaSTATin [Lipitor] 40 mg PO DAILY 11/14/17 [History] LORazepam 1 mg PO Q8H PRN 11/17/17 [History] Prazosin [Minpress] 2 mg PO BEDTIME 08/23/18 [History] Past Medical History HEENT History: Reports: Sinusitis, Other (See Below) Other HEENT History: TMJ pain. 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 Musculoskeletal History: Reports: Osteoporosis Other Musculoskeletal History: plantar fasceitis Neurological History: Reports: Migraines, Other (See Below) Other Neuro History: INSOMNIA Psychiatric History: Reports: Addiction, Anxiety, Depression Other Psychiatric History: Hx substance abuse Endocrine/Metabolic History: Reports: Hypothyroidism, Osteoporosis, Other (See Below) Other Endocrine/Metabolic History: HX OF CECILIA'S THYROIDITIS Hematologic History: Reports: B12 Deficiency, Other (See Below) Other Hematologic History: hashimotos Immunologic History: Reports: None Oncologic (Cancer) History: Reports: None Dermatologic History: Reports: Cellulitis, Eczema - Infectious Disease History Infectious Disease History: Reports: Chicken Pox - Past Surgical History Head Surgeries/Procedures: Reports: None HEENT Surgical History: Reports: Adenoidectomy, Naso-Sinus Surgery, Tonsillectomy, Other (See Below) Other HEENT Surgeries/Procedures: septoplasty, bilateral turbinoplasty Cardiovascular Surgical History: Reports: None Respiratory Surgical History: Reports: None GI Surgical History: Reports: Appendectomy, Cholecystectomy, Colonoscopy, EGD, Esophageal Dilatation, Hernia Repair/Other, Lysis of Adhesions, Other (See Below ) Other GI Surgeries/Procedures: umbilical hernia as child. ABDOMINAL ADHESION SURGERY Female Surgical History: Reports: Hysterectomy, Salpingo-Oophorectomy Endocrine Surgical History: Reports: Thyroidectomy Musculoskeletal Surgical History: Reports: Other (See Below) Other Musculoskeletal Surgeries/Procedures:: "shortening" of left ulna bone, L) wrist arthroscopy, L) wrsit ganglion cyst removal Social & Family History - Family History Family Medical History: Noncontributory HEENT: Reports: None Cardiac: Reports: Arrhythmia Other Cardiac Family History: HEART SURGERY Respiratory: Reports: None GI: Reports: Cirrhosis, Other (See Below) Other GI Family History: COLON CA : Reports: None OBGYN: Reports: None Musculoskeletal: Reports: None Neurological: Reports: None Psychiatric: Reports: Autism Endocrine/Metabolic: Reports: Diabetes, type II, Other (See Below) Other Endocrine/Metabolic Family History: some kind of thyroid disease in aunt Hematologic: Reports: B12 Deficiency Immunologic: Reports: None Dermatologic: Reports: None Oncologic: Reports: Breast, Colon - Caffeine Use Caffeine Use: Reports: Soda Other Caffeine Use: 1-2 cans ED ROS ENT - Review of Systems Review Of Systems: Comprehensive ROS is negative, except as noted in HPI. ED EXAM, ENT - Physical Exam Exam: See Below Exam Limited By: No Limitations General Appearance: Alert, WD/WN, Moderate Distress Eye Exam: Bilateral Eye: EOMI, Normal Inspection, PERRL Ears: Normal External Exam, Normal Canal, Hearing Grossly Normal, Normal TMs Nose: Normal Inspection, Normal Mucousa, No Blood Mouth/Throat: Dental Abcess (Right upper posterior), Dental Pain, Dental Tenderness Head: Atraumatic, Normocephalic Neck: Normal Inspection, Supple, Non-Tender, Full Range of Motion Respiratory/Chest: No Respiratory Distress, Lungs Clear, Normal Breath Sounds, No Accessory Muscle Use, Chest Non-Tender Cardiovascular: Normal Peripheral Pulses, Regular Rate, Rhythm, No Edema, No Gallop, No JVD, No Murmur, No Rub GI/Abdominal: Normal Bowel Sounds, Soft, Non-Tender, No Organomegaly, No Distention, No Abnormal Bruit, No Mass (Female) Exam: Deferred Rectal (Female) Exam: Deferred Back: Normal Inspection, Full Range of Motion Extremities: Normal Inspection, Normal Range of Motion, Non-Tender, No Pedal Edema, Normal Capillary Refill Neurological: Alert, Oriented, CN II-XII Intact, Normal Cognition, Normal Gait, Normal Reflexes, No Motor/Sensory Deficits Psychiatric: Normal Affect, Normal Mood Skin: Warm, Dry, Intact, Normal Color, No Rash Lymphatic: No Adenopathy Course - Orders/Labs/Meds Meds: Medications Discontinued Medications Generic Name Dose Route Start Last Admin Trade Name Quynh PRN Reason Stop Dose Admin Clindamycin HCl 300 mg 10/29/19 19:27 Cleocin PO 10/29/19 19:28 ONETIME ONE Lidocaine HCl 15 ml 10/29/19 19:27 Xylocaine 2% Viscous PO 10/29/19 19:28 ONETIME ONE Departure - Departure Time of Disposition: 19:35 Disposition: Home, Self-Care 01 Condition: Fair Clinical Impression: Dental abscess - Discharge Information *PRESCRIPTION DRUG MONITORING PROGRAM REVIEWED*: Not Applicable *COPY OF PRESCRIPTION DRUG MONITORING REPORT IN PATIENT RIGO: Not Applicable Instructions: Dental Abscess, [id number] Care Plan Goals: The patient was advised of the examination results during the visit. The patient was given a dose of Viscous Lidocaine and a dose of Clindamycin while in the ED. The patient was also given a script for Clindamycin (300 mg) to take 1 by mouth 4 times per day for 10 days and Viscous Lidocaine 2% #150 mL to use 5 -10 mL on a cottonball applied to area every 6 hours as needed. The patient was encouraged to follow-up with a dentist as soon as possible for continued evaluation and further management. If the patient has any additional symptoms or concerns, the patient should either follow-up with her primary care facility or return to the emergency department.
== END 2019-10-29 19:43 | disposition home or self-care (01) ==
LOC: DL.ED 19:15
DX: K04.7 Periapical abscess without sinus (principal); E78.00 Pure hypercholesterolemia, unspecified; J45.909 Unspecified asthma, uncomplicated; E03.9 Hypothyroidism, unspecified; Z88.8 Allergy status to other drugs, medicaments and biological substances; Z88.6 Allergy status to analgesic agent; Z88.0 Allergy status to penicillin; Z88.5 Allergy status to narcotic agent; Z88.1 Allergy status to other antibiotic agents; Z79.899 Other long term (current) drug therapy
CPT/HCPCS: 99282; A9270

== ENCOUNTER 2020-01-16 04:07 | Emergency (ER) | payer MEDICAID | END 2020-01-16 04:11 | disposition left against medical advice (07) | LOC: DL.ED 04:07 | DX: Z53.21 Procedure and treatment not carried out due to patient leaving prior to being seen by health care provider (principal) ==

== ENCOUNTER 2020-10-19 14:38 | Emergency (ER) | payer MEDICAID | END 2020-10-19 14:43 | disposition left against medical advice (07) | LOC: DL.ED 14:38 | DX: Z53.21 Procedure and treatment not carried out due to patient leaving prior to being seen by health care provider (principal) ==

== ENCOUNTER 2020-10-20 02:04 | Emergency (ER) | payer MEDICAID ==
[2020-10-20 02:48] VITALS: BP 136/88; PULSE 109
--- NOTE | 2020-10-20 03:33 | EDM.PDOC ---
ED HPI GENERAL MEDICAL PROBLEM - General Chief Complaint: General Stated Complaint: TEMP 98*,COVID, NO TASTE OF FOOD, NOT FEELING WELL Time Seen by Provider: 10/20/20 03:15 Source of Information: Reports: Patient History Limitations: Reports: No Limitations - History of Present Illness INITIAL COMMENTS - FREE TEXT/NARRATIVE: ED with c/o sinus congestion malaise onset evening. Tonight noted loss of taste and smell. No fever or SOB. No nausea or vomiting. - Related Data Allergies Allergy/AdvReac Type Severity Reaction Status Date / Time benzonatate Allergy Itching Verified 10/20/20 02:56 [From Tessalon Perles] carisoprodol [From Soma] Allergy Cannot Verified 10/20/20 02:56 Remember diclofenac Allergy Rash Verified 10/20/20 02:56 escitalopram [From Lexapro] Allergy Rash Verified 10/20/20 02:56 guaifenesin [From Robitussin] Allergy Hives Verified 10/20/20 02:56 nabumetone [From Relafen] Allergy Rash Verified 10/20/20 02:56 Penicillins Allergy Hives Verified 10/20/20 02:56 prochlorperazine edisylate Allergy Other Verified 10/20/20 02:56 [From Compazine] prochlorperazine maleate Allergy Other Verified 10/20/20 02:56 [From Compazine] rofecoxib [From Vioxx] Allergy Cannot Verified 10/20/20 02:56 Remember tramadol [From Ultram] Allergy Rash Verified 10/20/20 02:56 vancomycin Allergy Redness Verified 10/20/20 02:56 TUSNEL Allergy Rash Uncoded 10/20/20 02:56 Home Meds: Home Meds Albuterol Sulfate [Proventil Hfa] 1 puff INH ASDIRECTED PRN 11/14/17 [History] Cholecalciferol (Vitamin D3) [Vitamin D] 50,000 unit PO .TWICEWEEKLY 11/14/17 [History] Folic Acid 1 mg PO DAILY 11/14/17 [History] Levothyroxine [Synthroid] 275 mcg PO DAILY 11/14/17 [History] Naproxen [Naprosyn] 500 mg PO ASDIRECTED PRN 11/14/17 [History] Ondansetron [Ondansetron ODT] 4 mg PO Q8H PRN 11/14/17 [History] Theanine [l-Theanine] 50 mg PO DAILY 11/14/17 [History] atorvaSTATin [Lipitor] 40 mg PO DAILY 11/14/17 [History] LORazepam 1 mg PO Q8H PRN 11/17/17 [History] Prazosin [Minpress] 2 mg PO BEDTIME 08/23/18 [History] Past Medical History HEENT History: Reports: Sinusitis, Other (See Below) Other HEENT History: TMJ pain. 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 Musculoskeletal History: Reports: Osteoporosis Other Musculoskeletal History: plantar fasceitis Neurological History: Reports: Migraines, Other (See Below) Other Neuro History: INSOMNIA Psychiatric History: Reports: Addiction, Anxiety, Depression Other Psychiatric History: Hx substance abuse Endocrine/Metabolic History: Reports: Hypothyroidism, Osteoporosis, Other (See Below) Other Endocrine/Metabolic History: HX OF CECILIA'S THYROIDITIS Hematologic History: Reports: B12 Deficiency, Other (See Below) Other Hematologic History: hashimotos Immunologic History: Reports: None Oncologic (Cancer) History: Reports: None Dermatologic History: Reports: Cellulitis, Eczema - Infectious Disease History Infectious Disease History: Reports: Chicken Pox - Past Surgical History Head Surgeries/Procedures: Reports: None HEENT Surgical History: Reports: Adenoidectomy, Naso-Sinus Surgery, Tonsillectomy, Other (See Below) Other HEENT Surgeries/Procedures: septoplasty, bilateral turbinoplasty Cardiovascular Surgical History: Reports: None Respiratory Surgical History: Reports: None GI Surgical History: Reports: Appendectomy, Cholecystectomy, Colonoscopy, EGD, Esophageal Dilatation, Hernia Repair/Other, Lysis of Adhesions, Other (See Below) Other GI Surgeries/Procedures: umbilical hernia as child. ABDOMINAL ADHESION SURGERY Female Surgical History: Reports: Hysterectomy, Salpingo-Oophorectomy Endocrine Surgical History: Reports: Thyroidectomy Musculoskeletal Surgical History: Reports: Other (See Below) Other Musculoskeletal Surgeries/Procedures:: "shortening" of left ulna bone, L) wrist arthroscopy, L) wrsit ganglion cyst removal Social & Family History - Family History Family Medical History: No Pertinent Family History HEENT: Reports: None Cardiac: Reports: Arrhythmia Other Cardiac Family History: HEART SURGERY Respiratory: Reports: None GI: Reports: Cirrhosis, Other (See Below) Other GI Family History: COLON CA : Reports: None OBGYN: Reports: None Musculoskeletal: Reports: None Neurological: Reports: None Psychiatric: Reports: Autism Endocrine/Metabolic: Reports: Diabetes, type II, Other (See Below) Other Endocrine/Metabolic Family History: some kind of thyroid disease in aunt Hematologic: Reports: B12 Deficiency Immunologic: Reports: None Dermatologic: Reports: None Oncologic: Reports: Breast, Colon - Tobacco Use Tobacco Use Status *Q: Current Every Day Tobacco User Years of Tobacco use: 27 Packs/Tins Daily: 1 - Caffeine Use Caffeine Use: Reports: Soda Other Caffeine Use: 1-2 cans - Recreational Drug Use Recreational Drug Use: No ED ROS GENERAL - Review of Systems Review Of Systems: Comprehensive ROS is negative, except as noted in HPI. ED EXAM, GENERAL - Physical Exam Exam: See Below Exam Limited By: No Limitations General Appearance: Alert, Mild Distress Eye Exam: Bilateral Eye: EOMI Ears: Normal External Exam, Hearing Grossly Normal, Normal TMs Nose: Normal Inspection Throat/Mouth: Normal Inspection Head: Atraumatic, Normocephalic Neck: Lymphadenopathy (L), Lymphadenopathy (R) Respiratory/Chest: No Respiratory Distress, Lungs Clear, Normal Breath Sounds Cardiovascular: Normal Peripheral Pulses, Regular Rate, Rhythm GI/Abdominal: Normal Bowel Sounds Neurological: Alert, Oriented, Normal Cognition Psychiatric: Normal Affect, Normal Mood Skin Exam: Warm, Dry, Intact, Normal Color Course - Vital Signs Last Recorded V/S: Last Vital Signs Temp 98.3 F 10/20/20 02:38 Pulse 109 H 10/20/20 02:38 Resp 19 10/20/20 02:38 BP 136/88 10/20/20 02:38 Pulse Ox 100 10/20/20 02:38 - Orders/Labs/Meds Labs: Laboratory Tests 10/20/20 Range/Units 02:30 SARS-CoV-2 RNA (AIDA) Negative (NEGATIVE) Departure - Departure Time of Disposition: 03:24 Disposition: Home, Self-Care 01 Condition: Good Clinical Impression: URI (upper respiratory infection) Qualifiers: URI type: unspecified viral URI Qualified Code(s): J06.9 - Acute upper respiratory infection, unspecified - Discharge Information *PRESCRIPTION DRUG MONITORING PROGRAM REVIEWED*: No *COPY OF PRESCRIPTION DRUG MONITORING REPORT IN PATIENT RIGO: No Instructions: Viral Respiratory Infection, [id number] Forms: ED Department Discharge Additional Instructions: humidifier increase fluids tylenol 500mg every 4 hours as needed for fever/ discomfort over the counter cough and cold medication per label instructions Follow up Tuesday for COVID recheck Wash hand frequently, wear mask, limit exposure to other until 2nd testing Sepsis Event Note (ED) - Evaluation Sepsis Screening Result: No Definite Risk - Focused Exam Vital Signs: Vital Signs Temp Pulse Resp BP Pulse Ox 10/20/20 02:38 98.3 F 109 H 19 136/88 100
== END 2020-10-20 03:38 | disposition home or self-care (01) ==
LOC: DL.ED 02:04
DX: J06.9 Acute upper respiratory infection, unspecified (principal); E78.00 Pure hypercholesterolemia, unspecified; J45.909 Unspecified asthma, uncomplicated; E03.9 Hypothyroidism, unspecified; Z79.899 Other long term (current) drug therapy; Z91.048 Other nonmedicinal substance allergy status; Z88.6 Allergy status to analgesic agent; Z88.8 Allergy status to other drugs, medicaments and biological substances; Z88.0 Allergy status to penicillin; Z72.0 Tobacco use; Z20.822 Contact with and (suspected) exposure to COVID-19
CPT/HCPCS: 99282; 99283; U0002

== ENCOUNTER 2020-10-26 17:00 | Emergency (ER) | payer MEDICAID ==
[2020-10-26] MEDS ORDERED: diphenhydrAMINE 50 MG/ML SDV IVPUSH ONE (18:02)
[2020-10-26] MEDS ORDERED: Butorphanol 2 MG/ML SDV IVPUSH ONE (18:27)
[2020-10-26] MEDS ORDERED: Butorphanol 2 MG/ML SDV IM ONE (18:38)
[2020-10-26 18:54] LABS: ANION GAP 15.4 mEq/L (7-13); CHLORIDE,CL 103 mmol/L (98-107); SODIUM,NA 140 mmol/L (136-145)
--- NOTE | 2020-10-26 18:57 | EDM.PDOC ---
Scribed by Carole Villagomez 10/26/20 1224 for Leslie Ariza NP <Lorenzo Zaman - Last Filed: 10/26/20 19:10> ED HPI GENERAL MEDICAL PROBLEM - General Chief Complaint: Respiratory Problem Stated Complaint: COVID POSITIVE Time Seen by Provider: 10/26/20 17:45 - Related Data Allergies Allergy/AdvReac Type Severity Reaction Status Date / Time benzonatate Allergy Itching Verified 10/26/20 17:17 [From Tessalon Perles] carisoprodol [From Soma] Allergy Cannot Verified 10/26/20 17:17 Remember diclofenac Allergy Rash Verified 10/26/20 17:17 escitalopram [From Lexapro] Allergy Rash Verified 10/26/20 17:17 guaifenesin [From Robitussin] Allergy Hives Verified 10/26/20 17:17 nabumetone [From Relafen] Allergy Rash Verified 10/26/20 17:17 Penicillins Allergy Hives Verified 10/26/20 17:17 prochlorperazine edisylate Allergy Other Verified 10/26/20 17:17 [From Compazine] prochlorperazine maleate Allergy Other Verified 10/26/20 17:17 [From Compazine] rofecoxib [From Vioxx] Allergy Cannot Verified 10/26/20 17:17 Remember tramadol [From Ultram] Allergy Rash Verified 10/26/20 17:17 vancomycin Allergy Redness Verified 10/26/20 17:17 TUSNEL Allergy Rash Uncoded 10/26/20 17:17 Home Meds: Home Meds Albuterol Sulfate [Proventil Hfa] 1 puff INH ASDIRECTED PRN 11/14/17 [History] Cholecalciferol (Vitamin D3) [Vitamin D] 50,000 unit PO .TWICEWEEKLY 11/14/17 [History] Folic Acid 1 mg PO DAILY 11/14/17 [History] Levothyroxine [Synthroid] 275 mcg PO DAILY 11/14/17 [History] Naproxen [Naprosyn] 500 mg PO ASDIRECTED PRN 11/14/17 [History] Ondansetron [Ondansetron ODT] 4 mg PO Q8H PRN 11/14/17 [History] Theanine [l-Theanine] 50 mg PO DAILY 11/14/17 [History] atorvaSTATin [Lipitor] 40 mg PO DAILY 11/14/17 [History] LORazepam 1 mg PO Q8H PRN 11/17/17 [History] Prazosin [Minpress] 2 mg PO BEDTIME 08/23/18 [History] Course - Re-Assessments/Exams Free Text/Narrative Re-Assessment/Exam: 10/26/20 19:10 The patient reports her pounding headache is subsiding, but she continues to feel nauseated. The patient was advised of the lab results. An order was placed for Phenergan IM. Departure - Departure Time of Disposition: 19:11 Disposition: Home, Self-Care 01 Condition: Fair Clinical Impression: COVID-19 Headache Qualifiers: Headache type: unspecified Headache chronicity pattern: acute headache Intractability: intractable Qualified Code(s): R51.9 - Headache, unspecified - Discharge Information *PRESCRIPTION DRUG MONITORING PROGRAM REVIEWED*: Not Applicable *COPY OF PRESCRIPTION DRUG MONITORING REPORT IN PATIENT RIGO: Not Applicable Forms: ED Department Discharge Care Plan Goals: The patient was advised of the examination and lab results during the visit. The patient was given injections of Stadol and Phenergan while in the ED with some symptom relief. The patient was encouraged to continue with over the counter medications for temporary symptom relief. If the patient has any additional symptoms or concerns, the patient should either return to the emergency department or visit her primary care facility. <Leslie Ariza - Last Filed: 10/27/20 07:26> ED HPI GENERAL MEDICAL PROBLEM - General Source of Information: Reports: Patient, RN, RN Notes Reviewed History Limitations: Reports: No Limitations - History of Present Illness INITIAL COMMENTS - FREE TEXT/NARRATIVE: Patient presents to ER with complaint of COVID symptoms. States she was tested positive on Tuesday10/22/20. She has been using NyQuil helped first 2 days q 6 hours. She is progressively getting worse. She has a complaint of headache. She is also using Ibuprofen and Zofran. She has a cough, nausea from headache, vomiting, chills, shortness of breath with more activity. No fever or chest pain. Onset: Gradual Duration: Constant Severity: Mild Improves with: Reports: None Worsens with: Reports: None Associated Symptoms: Reports: No Other Symptoms Headache Pain Score (Numeric/FACES): 6 Past Medical History HEENT History: Reports: Sinusitis, Other (See Below) Other HEENT History: TMJ pain. 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 Musculoskeletal History: Reports: Osteoporosis Other Musculoskeletal History: plantar fasceitis Neurological History: Reports: Migraines, Other (See Below) Other Neuro History: INSOMNIA Psychiatric History: Reports: Addiction, Anxiety, Depression Other Psychiatric History: Hx substance abuse Endocrine/Metabolic History: Reports: Hypothyroidism, Osteoporosis, Other (See Below) Other Endocrine/Metabolic History: HX OF CECILIA'S THYROIDITIS Hematologic History: Reports: B12 Deficiency, Other (See Below) Other Hematologic History: hashimotos Immunologic History: Reports: None Oncologic (Cancer) History: Reports: None Dermatologic History: Reports: Cellulitis, Eczema - Infectious Disease History Infectious Disease History: Reports: Chicken Pox - Past Surgical History Head Surgeries/Procedures: Reports: None HEENT Surgical History: Reports: Adenoidectomy, Naso-Sinus Surgery, Tonsillectomy, Other (See Below) Other HEENT Surgeries/Procedures: septoplasty, bilateral turbinoplasty Cardiovascular Surgical History: Reports: None Respiratory Surgical History: Reports: None GI Surgical History: Reports: Appendectomy, Cholecystectomy, Colonoscopy, EGD, Esophageal Dilatation, Hernia Repair/Other, Lysis of Adhesions, Other (See Below) Other GI Surgeries/Procedures: umbilical hernia as child. ABDOMINAL ADHESION SURGERY Female Surgical History: Reports: Hysterectomy, Salpingo-Oophorectomy Endocrine Surgical History: Reports: Thyroidectomy Musculoskeletal Surgical History: Reports: Other (See Below) Other Musculoskeletal Surgeries/Procedures:: "shortening" of left ulna bone, L) wrist arthroscopy, L) wrsit ganglion cyst removal Social & Family History - Family History Family Medical History: No Pertinent Family History HEENT: Reports: None Cardiac: Reports: Arrhythmia Other Cardiac Family History: HEART SURGERY Respiratory: Reports: None GI: Reports: Cirrhosis, Other (See Below) Other GI Family History: COLON CA : Reports: None OBGYN: Reports: None Musculoskeletal: Reports: None Neurological: Reports: None Psychiatric: Reports: Autism Endocrine/Metabolic: Reports: Diabetes, type II, Other (See Below) Other Endocrine/Metabolic Family History: some kind of thyroid disease in aunt Hematologic: Reports: B12 Deficiency Immunologic: Reports: None Dermatologic: Reports: None Oncologic: Reports: Breast, Colon - Tobacco Use Tobacco Use Status *Q: Current Every Day Tobacco User Years of Tobacco use: 25 Packs/Tins Daily: 1 - Caffeine Use Caffeine Use: Reports: Soda Other Caffeine Use: 1-2 cans - Recreational Drug Use Recreational Drug Use: No ED ROS GENERAL - Review of Systems Review Of Systems: Comprehensive ROS is negative, except as noted in HPI. ED EXAM, GENERAL - Physical Exam Exam: See Below Exam Limited By: No Limitations General Appearance: Alert, WD/WN, No Apparent Distress Eye Exam: Bilateral Eye: EOMI, Normal Inspection, PERRL Ears: Normal External Exam, Normal Canal, Hearing Grossly Normal, Normal TMs Nose: Normal Inspection, Normal Mucosa, No Blood Throat/Mouth: Normal Inspection, Normal Lips, Normal Teeth, Normal Gums, Normal Oropharynx, Normal Voice, No Airway Compromise Head: Atraumatic, Normocephalic Neck: Normal Inspection, Supple, Non-Tender, Full Range of Motion Respiratory/Chest: Other (diminished breath sounds but clear.) Cardiovascular: Normal Peripheral Pulses, Regular Rate, Rhythm, No Edema, No Gallop, No JVD, No Murmur, No Rub GI/Abdominal: Normal Bowel Sounds, Soft, Non-Tender, No Organomegaly, No Distention, No Abnormal Bruit, No Mass (Female) Exam: Deferred Rectal (Female) Exam: Deferred Back Exam: Normal Inspection Extremities: Normal Inspection, Normal Range of Motion, Non-Tender, Normal Capillary Refill, No Pedal Edema Neurological: Alert, Oriented, CN II-XII Intact, Normal Cognition, Normal Gait, Normal Reflexes, No Motor/Sensory Deficits Psychiatric: Normal Affect, Normal Mood Skin Exam: Warm, Dry, Intact, Normal Color, No Rash Lymphatic: No Adenopathy Course - Vital Signs Last Recorded V/S: Last Vital Signs Temp 97.2 F 10/26/20 19:23 Pulse 95 10/26/20 19:23 Resp 18 10/26/20 19:23 BP 142/104 H 10/26/20 19:23 Pulse Ox 99 10/26/20 19:23 - Orders/Labs/Meds Labs: Laboratory Tests 10/26/20 10/26/20 Range/Units 18:15 18:15 WBC 9.8 (5.0-10.0) 10^3/uL RBC 4.77 (4.2-5.4) 10^6/uL Hgb 14.5 (12.0-16.0) g/dL Hct 43.0 (37.0-47.0) % MCV 90.1 (80-100) fL MCH 30.4 (27.0-34.0) pg MCHC 33.7 (33.0-35.0) g/dL Plt Count 413 D (150-450) 10^3/uL Neut % (Auto) 79.1 H (42.2-75.2) % Lymph % (Auto) 15.6 L (20.5-50.1) % [place] % (Auto) 4.2 (2-8) % Eos % (Auto) 0.8 L (1.0-3.0) % Baso % (Auto) 0.3 (0.0-1.0) % Sodium 140 (136-145) mmol/L Potassium 4.4 (3.5-5.1) mmol/L Chloride 103 (98-107) mmol/L Carbon Dioxide 26 (21-32) mmol/L Anion Gap 15.4 H (7-13) mEq/L BUN 7 (7-18) mg/dL Creatinine 0.90 (0.55-1.02) mg/dL Est Cr Clr Drug Dosing 66.73 mL/min Estimated GFR (MDRD) > 60 BUN/Creatinine Ratio 7.8 (No establ ref range) Glucose 105 H (70-99) mg/dL Calcium 9.6 (8.5-10.1) mg/dL Total Bilirubin 0.4 (0.2-1.0) mg/dL AST 18 (15-37) U/L ALT 37 (14-59) U/L Alkaline Phosphatase 119 H (46-116) U/L C-Reactive Protein < 0.2 (0.0-0.9) mg/dL Total Protein 7.6 (6.4-8.2) g/dL Albumin 4.0 (3.4-5.0) g/dL Globulin 3.6 Albumin/Globulin Ratio 1.1 Meds: Medications Discontinued Medications Generic Name Dose Route Start Last Admin Trade Name Freq PRN Reason Stop Dose Admin Butorphanol Tartrate 2 mg 10/26/20 18:27 10/26/20 18:49 Butorphanol 2 Mg/Ml Sdv IVPUSH 10/26/20 18:28 Not Given ONETIME ONE Butorphanol Tartrate 2 mg 10/26/20 18:38 10/26/20 18:49 Butorphanol 2 Mg/Ml Sdv IM 10/26/20 18:39 2 mg ONETIME ONE Administration Diphenhydramine HCl 25 mg 10/26/20 18:02 10/26/20 18:49 Diphenhydramine 50 Mg/Ml Sdv IVPUSH 10/26/20 18:03 Not Given ONETIME ONE Promethazine HCl 50 mg 10/26/20 19:09 10/26/20 19:21 Promethazine 25 Mg/Ml Sdv IM 10/26/20 19:10 50 mg ONETIME ONE Administration Sepsis Event Note (ED) - Evaluation Sepsis Screening Result: No Definite Risk I have read and agree with the documentation that has been completed regarding this visit. By signing this record, I attest that the documentation was completed in my physical presence and is an accurate record of the encounter.
[2020-10-26] MEDS ORDERED: Promethazine 25 MG/ML SDV IM ONE (19:09)
[2020-10-26 19:24] VITALS: BP 142/104; PULSE 95
== END 2020-10-26 19:26 | disposition home or self-care (01) ==
LOC: DL.ED 17:00
DX: U07.1 COVID-19 (principal); Z72.0 Tobacco use; Z88.0 Allergy status to penicillin; Z88.1 Allergy status to other antibiotic agents; Z88.5 Allergy status to narcotic agent; Z91.048 Other nonmedicinal substance allergy status
CPT/HCPCS: 36415; 80053; 85025; 86140; 96372; 99283; 99284; J0595; J2550

== ENCOUNTER 2020-11-05 03:12 | Emergency (ER) | payer MEDICAID ==
[2020-11-05 03:29] VITALS: BP 124/82; PULSE 122
[2020-11-05 03:56] LABS: ANION GAP 14.6 mEq/L (7-13); CHLORIDE,CL 103 mmol/L (98-107); SODIUM,NA 139 mmol/L (136-145)
--- NOTE | 2020-11-05 03:59 | EDM.PDOC ---
ED HPI GENERAL MEDICAL PROBLEM - General Stated Complaint: HEART IS RACING OUT OF CHEST Time Seen by Provider: 11/05/20 03:50 Source of Information: Reports: Patient History Limitations: Reports: No Limitations - History of Present Illness INITIAL COMMENTS - FREE TEXT/NARRATIVE: This 45 yo female patient reports to the ED with her son due to her heart racing. The patient reports she does have a history of insomnia. The patient reports she was getting ready for bed just prior to her arrival in the ED, when she started to feel like her heart was racing. The patient reports she tried her breathing techniques as well as talking with her son, but continued to have symptoms. The patient reports she started feeling better after she arrived in the ED and now reports feeling normal. The patient denies any chest pain. The patient reports she does have a history of anxiety, but has not been taking any medications for her anxiety for the past 2-3 years. Onset: Today Duration: Minutes: Location: Reports: Chest Quality: Reports: Other Severity: Moderate Improves with: Reports: None Worsens with: Reports: None Context: Reports: Other Associated Symptoms: Reports: Other (Heart palpitations) - Related Data Allergies Allergy/AdvReac Type Severity Reaction Status Date / Time benzonatate Allergy Itching Verified 10/26/20 17:17 [From Tessalon Perles] carisoprodol [From Soma] Allergy Cannot Verified 10/26/20 17:17 Remember diclofenac Allergy Rash Verified 10/26/20 17:17 escitalopram [From Lexapro] Allergy Rash Verified 10/26/20 17:17 guaifenesin [From Robitussin] Allergy Hives Verified 10/26/20 17:17 nabumetone [From Relafen] Allergy Rash Verified 10/26/20 17:17 Penicillins Allergy Hives Verified 10/26/20 17:17 prochlorperazine edisylate Allergy Other Verified 10/26/20 17:17 [From Compazine] prochlorperazine maleate Allergy Other Verified 10/26/20 17:17 [From Compazine] rofecoxib [From Vioxx] Allergy Cannot Verified 10/26/20 17:17 Remember tramadol [From Ultram] Allergy Rash Verified 10/26/20 17:17 vancomycin Allergy Redness Verified 10/26/20 17:17 TUSNEL Allergy Rash Uncoded 10/26/20 17:17 Home Meds: Home Meds Albuterol Sulfate [Proventil Hfa] 1 puff INH ASDIRECTED PRN 11/14/17 [History] Cholecalciferol (Vitamin D3) [Vitamin D] 50,000 unit PO .TWICEWEEKLY 11/14/17 [History] Folic Acid 1 mg PO DAILY 11/14/17 [History] Levothyroxine [Synthroid] 275 mcg PO DAILY 11/14/17 [History] Naproxen [Naprosyn] 500 mg PO ASDIRECTED PRN 11/14/17 [History] Ondansetron [Ondansetron ODT] 4 mg PO Q8H PRN 11/14/17 [History] Theanine [l-Theanine] 50 mg PO DAILY 11/14/17 [History] atorvaSTATin [Lipitor] 40 mg PO DAILY 11/14/17 [History] LORazepam 1 mg PO Q8H PRN 11/17/17 [History] Prazosin [Minpress] 2 mg PO BEDTIME 08/23/18 [History] Past Medical History HEENT History: Reports: Sinusitis, Other (See Below) Other HEENT History: TMJ pain. PERIORBITAL CELLULITIS Cardiovascular History: Reports: High Cholesterol, Other (See Below) Other Cardiovascular History: Mitral valve prolapse Respiratory History: Reports: Asthma, Bronchitis, Recurrent Gastrointestinal History: Reports: Other (See Below) Other Gastrointestinal History: IDIOPATHIC COLITIS Genitourinary History: Reports: None [employer]OS[employer] MECH[employer]IC History: Reports: , Spontaneous Musculoskeletal History: Reports: Osteoporosis Other Musculoskeletal History: plantar fasceitis Neurological History: Reports: Migraines, Other (See Below) Other Neuro History: INSOMNIA Psychiatric History: Reports: Addiction, Anxiety, Depression Other Psychiatric History: Hx substance abuse Endocrine/Metabolic History: Reports: Hypothyroidism, Osteoporosis, Other (See Below) Other Endocrine/Metabolic History: HX OF CECILIA'S THYROIDITIS Hematologic History: Reports: B12 Deficiency, Other (See Below) Other Hematologic History: hashimotos Immunologic History: Reports: None Oncologic (Cancer) History: Reports: None Dermatologic History: Reports: Cellulitis, Eczema - Infectious Disease History Infectious Disease History: Reports: Chicken Pox - Past Surgical History Head Surgeries/Procedures: Reports: None HEENT Surgical History: Reports: Adenoidectomy, Naso-Sinus Surgery, Tonsillectomy, Other (See Below) Other HEENT Surgeries/Procedures: septoplasty, bilateral turbinoplasty Cardiovascular Surgical History: Reports: None Respiratory Surgical History: Reports: None GI Surgical History: Reports: Appendectomy, Cholecystectomy, Colonoscopy, EGD, Esophageal Dilatation, Hernia Repair/Other, Lysis of Adhesions, Other (See Below) Other GI Surgeries/Procedures: umbilical hernia as child. ABDOMINAL ADHESION SURGERY Female Surgical History: Reports: Hysterectomy, Salpingo-Oophorectomy Endocrine Surgical History: Reports: Thyroidectomy Musculoskeletal Surgical History: Reports: Other (See Below) Other Musculoskeletal Surgeries/Procedures:: "shortening" of left ulna bone, L) wrist arthroscopy, L) wrsit ganglion cyst removal Social & Family History - Family History Family Medical History: No Pertinent Family History HEENT: Reports: None Cardiac: Reports: Arrhythmia Other Cardiac Family History: HEART SURGERY Respiratory: Reports: None GI: Reports: Cirrhosis, Other (See Below) Other GI Family History: COLON CA : Reports: None OBGYN: Reports: None Musculoskeletal: Reports: None Neurological: Reports: None Psychiatric: Reports: Autism Endocrine/Metabolic: Reports: Diabetes, type II, Other (See Below) Other Endocrine/Metabolic Family History: some kind of thyroid disease in aunt Hematologic: Reports: B12 Deficiency Immunologic: Reports: None Dermatologic: Reports: None Oncologic: Reports: Breast, Colon - Caffeine Use Caffeine Use: Reports: Soda Other Caffeine Use: 1-2 cans ED ROS GENERAL - Review of Systems Review Of Systems: Comprehensive ROS is negative, except as noted in HPI. ED EXAM, GENERAL - Physical Exam Exam: See Below Exam Limited By: No Limitations General Appearance: Alert, WD/WN, Anxious, Mild Distress Eye Exam: Bilateral Eye: EOMI, Normal Inspection, PERRL Ears: Normal External Exam, Normal Canal, Hearing Grossly Normal, Normal TMs Nose: Normal Inspection, Normal Mucosa, No Blood Throat/Mouth: Normal Inspection, Normal Lips, Normal Teeth, Normal Gums, Normal Oropharynx, Normal Voice, No Airway Compromise Head: Atraumatic, Normocephalic Neck: Normal Inspection, Supple, Non-Tender, Full Range of Motion Respiratory/Chest: No Respiratory Distress Cardiovascular: No Edema, No Gallop, No JVD, No Murmur, No Rub, Tachycardia GI/Abdominal: Normal Bowel Sounds, Soft, Non-Tender, No Organomegaly, No Distention, No Abnormal Bruit, No Mass (Female) Exam: Deferred Rectal (Female) Exam: Deferred Back Exam: Normal Inspection, Full Range of Motion, NT Extremities: Normal Inspection, Normal Range of Motion, Non-Tender, Normal Capillary Refill, No Pedal Edema Neurological: Alert, Oriented, CN II-XII Intact, Normal Cognition, Normal Gait, Normal Reflexes, No Motor/Sensory Deficits Psychiatric: Anxious Skin Exam: Warm, Dry, Intact, Normal Color, No Rash Lymphatic: No Adenopathy #1 Interpretation EKG Date: 11/05/20 Time: 03:22 Rhythm: Other (Sinus Tachycardia) Rate (Beats/Min): 120 [place]: Normal P-Wave: Present QRS: Normal ST-T: Normal QT: Normal Comparison: NA - No Prior EKG Course - Vital Signs Last Recorded V/S: Last Vital Signs Temp 97.8 F 11/05/20 03:26 Pulse 122 H 11/05/20 03:26 Resp 14 11/05/20 03:26 BP 124/82 11/05/20 03:26 Pulse Ox 100 11/05/20 03:26 - Orders/Labs/Meds Orders: Active Orders 24 hr Category Date Time Status EKG Documentation Completion [RC] STAT Care 11/05/20 03:21 Ordered DRUG SCREEN URINE BIORAD [URCHEM] Stat Lab 11/05/20 03:21 Ordered UA RFX SANTO AND CULT IF INDIC [URIN] Urgent Lab 11/05/20 03:21 Ordered Labs: Laboratory Tests 11/05/20 11/05/20 Range/Units 03:29 03:29 WBC 8.4 (5.0-10.0) 10^3/uL RBC 4.49 (4.2-5.4) 10^6/uL Hgb 13.7 (12.0-16.0) g/dL Hct 41.2 (37.0-47.0) % MCV 91.8 (80-100) fL MCH 30.5 (27.0-34.0) pg MCHC 33.3 (33.0-35.0) g/dL Plt Count 304 D (150-450) 10^3/uL Neut % (Auto) 60.2 (42.2-75.2) % Lymph % (Auto) 30.6 (20.5-50.1) % Miller % (Auto) 6.5 (2-8) % Eos % (Auto) 2.3 (1.0-3.0) % Baso % (Auto) 0.4 (0.0-1.0) % Sodium 139 (136-145) mmol/L Potassium 3.6 (3.5-5.1) mmol/L Chloride 103 (98-107) mmol/L Carbon Dioxide 25 (21-32) mmol/L Anion Gap 14.6 H (7-13) mEq/L BUN 13 (7-18) mg/dL Creatinine 0.97 (0.55-1.02) mg/dL Est Cr Clr Drug Dosing 67.12 mL/min Estimated GFR (MDRD) > 60 BUN/Creatinine Ratio 13.4 (No establ ref range) Glucose 192 H (70-99) mg/dL Calcium 8.7 (8.5-10.1) mg/dL Total Bilirubin 0.3 (0.2-1.0) mg/dL AST 28 (15-37) U/L ALT 59 (14-59) U/L Alkaline Phosphatase 106 (46-116) U/L Troponin I High Sens 7 (<=51) pg/mL Total Protein 6.6 (6.4-8.2) g/dL Albumin 3.4 (3.4-5.0) g/dL Globulin 3.2 Albumin/Globulin Ratio 1.1 Departure - Departure Time of Disposition: 04:04 Disposition: Home, Self-Care 01 Condition: Fair Clinical Impression: Anxiety about health Instructions: Managing Anxiety, Adult Forms: ED Department Discharge Care Plan Goals: The patient was advised of the examination, lab and EKG results during the visit. The patient was encouraged to monitor for any additional symptoms or concerns. If the patient has any additional symptoms or concerns, the patient should either return to the emergency department or visit her primary care facility. Sepsis Event Note (ED) - Evaluation Sepsis Screening Result: No Definite Risk - Focused Exam Vital Signs: Vital Signs Temp Pulse Resp BP Pulse Ox 11/05/20 03:26 97.8 F 122 H 14 124/82 100 - My Orders Last 24 Hours: My Active Orders 11/05/20 03:21 EKG Documentation Completion [RC] STAT DRUG SCREEN URINE BIORAD [URCHEM] Stat UA RFX SANTO AND CULT IF INDIC [URIN] Urgent - Assessment/Plan Last 24 Hours: My Active Orders 11/05/20 03:21 EKG Documentation Completion [RC] STAT DRUG SCREEN URINE BIORAD [URCHEM] Stat UA RFX SANTO AND CULT IF INDIC [URIN] Urgent
== END 2020-11-05 04:12 | disposition home or self-care (01) ==
LOC: DL.ED 03:12
DX: F41.9 Anxiety disorder, unspecified (principal); E78.00 Pure hypercholesterolemia, unspecified; J45.909 Unspecified asthma, uncomplicated; E03.9 Hypothyroidism, unspecified; Z79.899 Other long term (current) drug therapy; Z88.8 Allergy status to other drugs, medicaments and biological substances; Z88.6 Allergy status to analgesic agent; Z88.0 Allergy status to penicillin; Z88.5 Allergy status to narcotic agent; Z88.1 Allergy status to other antibiotic agents
CPT/HCPCS: 36415; 80053; 84484; 85025; 93005; 93010; 99283; 99285-25

== ENCOUNTER 2023-04-30 05:15 | Emergency (ER) | payer MEDICAID ==
[2023-04-30] MEDS ORDERED: Sodium Chloride 0.9% 10 ML Syringe FLUSH PRN (05:39)
[2023-04-30] MEDS ORDERED: Lactulose Soln 10 GM/15 ML 30 ML UD Cup PO ONE (05:41)
[2023-04-30 05:45] VITALS: BP 128/102; PULSE 73
[2023-04-30 05:59] LABS: BASOPHILS PERCENT AUTO 0.8 % (0.0-1.0); EOSINOPHILS PERCENT AUTO 0.7 % (1.0-3.0); HEMATOCRIT 38.3 % (37.0-47.0); HEMOGLOBIN 13.1 g/dL (12.0-16.0); LYMPHOCYTES PERCENT AUTO 24.2 % (20.5-50.1); MEAN CORPUSCULAR HGB CONC 34.2 g/dL (33.0-35.0); MEAN CORPUSCULAR VOLUME 96.5 fL (80-100); MONOCYTES PERCENT AUTO 6.1 % (2-8); NEUTROPHILS PERCENT AUTO 68.2 % (42.2-75.2); PLATELET COUNT,PLT 367 10^3/uL (150-450); RED BLOOD CELL COUNT 3.97 10^6/uL (4.2-5.4); WHITE BLOOD CELL COUNT,WBC 7.1 10^3/uL (5.0-10.0)
[2023-04-30 06:20] LABS: A/G RATIO 1.3; ALBUMIN 4.1 g/dL (3.4-5.0); ANION GAP 11.2 mEq/L (7-13); BILIRUBIN TOTAL 0.6 mg/dL (0.2-1.0); BUN/CREATININE RATIO 8.6 (No establ ref range); CALCIUM 8.9 mg/dL (8.5-10.1); CREATININE 1.51 mg/dL (0.55-1.02); EST CRCL DRUG DOSING (CG) 38.92 mL/min; MAGNESIUM 3.8 mg/dL (1.8-2.4); POTASSIUM,K 3.2 mmol/L (3.5-5.1); PROTEIN TOTAL,TP 7.2 g/dL (6.4-8.2)
[2023-04-30] MEDS ORDERED: Sodium Chloride 0.9% 1,000 ML IV ONE (06:34)
== END 2023-04-30 07:55 | disposition home or self-care (01) ==
LOC: DL.ED 05:15
DX: N17.9 Acute kidney failure, unspecified (principal); K59.00 Constipation, unspecified; E83.42 Hypomagnesemia; E87.6 Hypokalemia; T47.2X5A Adverse effect of stimulant laxatives, initial encounter; E78.00 Pure hypercholesterolemia, unspecified; E03.9 Hypothyroidism, unspecified; F17.210 Nicotine dependence, cigarettes, uncomplicated; Z90.49 Acquired absence of other specified parts of digestive tract; Z90.710 Acquired absence of both cervix and uterus; Z88.0 Allergy status to penicillin; Z88.5 Allergy status to narcotic agent; Z88.8 Allergy status to other drugs, medicaments and biological substances; Z79.899 Other long term (current) drug therapy
CPT/HCPCS: 36415; 80053; 83735; 85025; 96360; 99285; A9270; J7030; J3490

== ENCOUNTER 2025-02-24 23:20 | Emergency (ER) | payer SELFPAY ==
[2025-02-25 01:02] VITALS: BP 157/107; PULSE 83
== END 2025-02-25 01:10 | disposition home or self-care (01) ==
LOC: DL.ED 23:20
DX: S90.31XA Contusion of right foot, initial encounter (principal); I16.0 Hypertensive urgency; E78.00 Pure hypercholesterolemia, unspecified; J45.909 Unspecified asthma, uncomplicated; E03.9 Hypothyroidism, unspecified; Z88.8 Allergy status to other drugs, medicaments and biological substances; Z88.7 Allergy status to serum and vaccine; Z88.5 Allergy status to narcotic agent; Z79.899 Other long term (current) drug therapy; W22.8XXA Striking against or struck by other objects, initial encounter; Y93.89 Activity, other specified
CPT/HCPCS: 73630-RT; 99283